=== PATIENT | female | born 1985 | race African-American/Black ===

== ENCOUNTER 2017-01-29 05:28 | Emergency (ER) | payer SELFPAY ==
[~2017-01-29] VITALS: Ht 154.9 cm; Wt 100.1 kg
[2017-01-29 05:28] VITALS: BP 129/71; PULSE 109; TEMP 97.8; O2SAT 99
[~2017-01-29 05:28] MED LIST: BENT20TA PO; MOBI7.5T PO; ZANTTAB PO; ZOFR4TAB3 SL
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
[2017-01-29] MEDS ORDERED: IBUP800T23 PO (06:30)
[2017-01-29] MEDS ORDERED: KETOROLAC TROMETHAMINE 60 MG/2 ML (IM) VIAL IM ONE (06:45)
--- NOTE | 2017-01-29 06:57 | RADHPO ---
EXAM DATE/TIME: 01/29/2017 06:15 [facility] COMPARISON: No previous studies available for comparison. INDICATIONS : Right ankle pain from fall. MEDICAL HISTORY : None. SURGICAL HISTORY : None. ENCOUNTER: Initial ACUITY: 1 day PAIN SCORE: 8/10 LOCATION: lateral side of ankle. FINDINGS: There is mild soft tissue thickening both medial and lateral. No radiopaque foreign bodies. The oss eous structures are grossly intact without evidence of fracture. The ankle mortise is normal in conf iguration. CONCLUSION: Medial lateral soft tissue swelling. No fracture seen. Wili Stroud MD on January 29, 2017 at 6:55 Board Certified Radiologist. This report was verified electronically.
[2017-01-29 07:05] VITALS: BP 117/75; PULSE 84; RESP 16; O2SAT 99
[2017-01-29 08:38] VITALS: BP 121/70
== END 2017-01-29 08:54 | disposition home or self-care (01) ==
LOC: PHED 05:28
DX: S93.401A Sprain of unspecified ligament of right ankle, initial encounter (principal); F10.129 Alcohol abuse with intoxication, unspecified; W18.30XA Fall on same level, unspecified, initial encounter; Y93.9 Activity, unspecified; Y92.9 Unspecified place or not applicable
CPT/HCPCS: 73610; 96372; 99283; E0113; J1885

== ENCOUNTER 2017-03-14 06:51 | Emergency (ER) | payer SELFPAY ==
[~2017-03-14] VITALS: Ht 175.3 cm; Wt 87.0 kg
[~2017-03-14 06:51] MED LIST changes: -BENT20TA PO; +IBUP800T23 PO; -MOBI7.5T PO; -ZANTTAB PO; -ZOFR4TAB3 SL
[2017-03-14] MEDS ORDERED: LORazepam 2 MG/ML VIAL IV PUSH ONE (07:30)
[2017-03-14] MEDS ORDERED: ONDANSETRON HCL 4 MG/2 ML VIAL IV ONE ×2 (07:30)
[2017-03-14] MEDS ORDERED: KETOROLAC TROMETHAMINE 30 MG/ML (IVP) VIAL IVP ONE (07:30)
[2017-03-14] MEDS ORDERED: SODIUM CHLOR 0.9% 1000 ML INJ 1,000 ML IV ONE (07:30)
[2017-03-14 07:36] LABS: AUTOMATED NEUTROPHIL # 6.3 TH/MM3 (1.8-7.7); BASOPHIL # 0.1 TH/MM3 (0-0.2); BASOPHIL % 0.6 % (0.0-2.0); EOSINOPHIL # 0.1 TH/MM3 (0-0.4); EOSINOPHIL % 1.4 % (0.0-4.0); HEMATOCRIT 37.7 % (35.0-46.0); HEMO FLAGS DIFF FINAL; LYMPH % 28.4 % (9.0-44.0); LYMPHOCYTE # 2.8 TH/MM3 (1.0-4.8); MEAN CELL VOLUME 81.3 FL (80.0-100.0); MEAN CORPUSCULAR HEMOGLOBIN 27.5 PG (27.0-34.0); MEAN CORPUSCULAR HGB CONC 33.8 % (32.0-36.0); MONO % 6.2 % (0.0-8.0); NEUT % 63.4 % (16.0-70.0); PLATELET COUNT 294 TH/MM3 (150-450); RED BLOOD COUNT 4.64 MIL/MM3 (4.00-5.30); RED CELL DISTRIBUTION WIDTH 15.7 % (11.6-17.2)
[2017-03-14 07:38] LABS: BLOOD, URINE TRACE (NEG); COMMENT (UR) CULT NOT INDICATED; CULTURE IF INDICATED CULT NOT INDICATED; GLUCOSE,URINE NEG (NEG); KETONE, URINE NEG (NEG); MUCUS URINE FEW /lpf (OCC); NITRITE,URINE NEG (NEG); PH, URINE 6.5 (5.0-8.5); SQUAMOUS EPITHELIAL CELL URINE 1 /hpf (0-5); URINE COLOR YELLOW (YELLW/STRAW)
[2017-03-14] MEDS ORDERED: ACETAMINOPHEN 1000 MG/100 ML VIAL IV ONE (07:45)
[2017-03-14 07:54] LABS: ALT (GPT) 21 U/L (10-53); ANION GAP 8 MEQ/L (5-15); AST (GOT) 19 U/L (15-37); BICARBONATE 24.1 MEQ/L (21.0-32.0); BLOOD UREA NITROGEN 8 MG/DL (7-18); CHLORIDE 107 MEQ/L (98-107); GLOMERULAR FILTRATION RATE 86 ML/MIN (>89); POTASSIUM 3.7 MEQ/L (3.5-5.1); SODIUM (NA) 139 MEQ/L (136-145)
[2017-03-14 07:56] LABS: ALKALINE PHOSPHATASE 61 U/L (45-117); TOTAL BILIRUBIN ADULT 0.2 MG/DL (0.2-1.0)
[2017-03-14] MEDS ORDERED: NAPR500 PO (08:03)
[2017-03-14] MEDS ORDERED: ZOFR4TAB3 SL (08:03)
[2017-03-14] MEDS ORDERED: TRAM50TA PO (08:03)
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
[2017-03-14 12:18] LABS: CHLAMYDIA PCR NOT DETECTED (NOT DETECT); NEISSERIA PCR NOT DETECTED (NOT DETECT)
== END 2017-03-14 08:30 | disposition home or self-care (01) ==
LOC: NEPE 06:51
DX: R10.9 Unspecified abdominal pain (principal); I10 Essential (primary) hypertension; M54.9 Dorsalgia, unspecified; G89.29 Other chronic pain; F17.210 Nicotine dependence, cigarettes, uncomplicated
CPT/HCPCS: 80053; 81001; 83690; 84703; 85025; 87491; 87591; 96374; 96375; 99283; J0131; J1885; J2060; J2405; J7030

== ENCOUNTER 2017-03-21 02:10 | Emergency (ER) | payer SELFPAY ==
[~2017-03-21] VITALS: Ht 180.3 cm; Wt 78.0 kg
[~2017-03-21 02:10] MED LIST changes: -IBUP800T23 PO; +NAPR500 PO; +TRAM50TA PO; +ZOFR4TAB3 SL
[2017-03-21 02:13] VITALS: BP 135/79; PULSE 86; RESP 16; TEMP 98.8; O2SAT 98
[2017-03-21] MEDS ORDERED: TRIA.1%T TOPICAL (02:43)
[2017-03-21] MEDS ORDERED: VIST50CA PO (02:43)
[2017-03-21] MEDS ORDERED: diphenhydrAMINE HCL 50 MG/ML VIAL IM ONE (02:45)
[2017-03-21] MEDS ORDERED: DEXAMETHASONE SOD PHOS 20 MG/5 ML VIAL IM ONE (02:45)
--- NOTE | 2017-03-21 02:46 | PD ---
HPI Chief Complaint: Bite or Sting Time Seen by Provider: 02:43 Travel History International Travel<30 days: No Contact w/Intl Traveler<30days: No Traveled to known affect area: No History of Present Illness HPI 31-year-old black female presents to emergency department for evaluation of a insect bite. She states that she is been having pain, swelling and redness to her left forearm for the last 3 days after been bitten by something. She does not recall what may have been. She states that it becomes painful when she puts pressure on it. States that she has cramping in her hand from it. Symptoms are moderate. She denies any shortness of breath or wheezing. No glossal edema. No other rashes. PFSH Past Medical History Anxiety: Yes Diminished Hearing: No Hypertension: Yes Musculoskeletal: Yes ( CHRONIC BACK PAIN) Reproductive: No Immunizations Current: Yes Tetanus Vaccination: < 5 Years Influenza Vaccination: No PNEUMOCCOCAL Vaccine (Year): 3 ?: Not Menopausal: No : 1 Miscarriage: 1 Ovarian Cysts: Yes Past Surgical History Appendectomy: Yes Gynecologic Surgery: Yes (FIBROID TUMOR) Other Surgery: Yes Social History Alcohol Use: Yes (OCC) Tobacco Use: Yes (2-3 ppd ) Substance Use: Yes (marijuana) Allergies-Medications (Allergen,Severity, Reaction): Coded Allergies: Codeine (Verified Allergy, Severe, ANAPHALAXIS, 03/21/17) Doxycycline (Verified Allergy, Severe, Anaphylaxis, 03/21/17) Reported Meds & Prescriptions Reported Meds & Active Scripts Active No Active Prescriptions or Reported Medications Review of Systems Except as stated in HPI: all other systems reviewed are Neg Physical Exam Narrative GENERAL: This is a well-nourished, well-developed patient, in no apparent distress. SKIN: The patient has a 4 x 4 centimeter area of erythema and induration. No fluctuance or pointing., ecchymoses or lesions. Warm and dry. HEAD: Atraumatic. Normocephalic. EYES: PERRL, EOMI, no discharge or injection. No scleral icterus. EARS: Clear NOSE: Nasal turbinates appear normal. THROAT: Mucosa pink and moist. Airway patent. NECK: Trachea midline. supple, moves head freely. LUNGS: Clear to auscultation. CV: Regular in rhythm. ABDOMEN: Soft nontender. EXT: No clubbing cyanosis or edema. Data Data Last Documented VS Vital Signs Date Time Temp Pulse Resp B/P Pulse Ox O2 Delivery O2 Flow Rate FiO2 03/21/17 02:13 98.8 86 16 135/79 98 Room Air Orders Diphenhydramine Inj (Benadryl Inj) (03/21/17 02:45) Dexamethasone Inj (Decadron Inj) (03/21/17 02:45) MDM Medical Decision Making Medical Screen Exam Complete: Yes Emergency Medical Condition: Yes Medical Record Reviewed: Yes Differential Diagnosis MDM: High Differential diagnoses: Abscess, folliculitis, cellulitis, lymphangitis, abrasion, contact dermatitis, insect bite with local reaction Narrative Course Patient is given Decadron 10 mg IM and Benadryl 50 g IM. This is insect bite local reaction left forearm Diagnosis Primary Impression: Insect bite of left forearm with local reaction Qualified Code: S50.862A - Insect bite of left forearm with local reaction, initial encounter Patient Instructions: General Instructions Additional Instructions: Rest. Elevation. keep clean and dry. Triamcinolone and Vistaril. Follow-up with a medical doctor in the next 2-3 days for recheck. Return to the ER for any problems. Med/Other Pt SpecificInfo: Prescription(s) given Scripts Triamcinolone Topical 0.1% Cream1 Applic TOPICAL BID #30 GM Prov:Sheryl Diaz MD 03/21/17 Hydroxyzine Pamoate (Vistaril)50 Mg Cap50 Mg PO QID PRN (ITCHING) #20 CAP Ref 0 Prov:Sheryl Diaz MD 03/21/17 Disposition: 01 DISCHARGE HOME Condition: Stable Ric Jerez March 21, 2017 02:46
== END 2017-03-21 03:07 | disposition home or self-care (01) ==
LOC: NEPK 02:10
DX: S50.862A Insect bite (nonvenomous) of left forearm, initial encounter (principal); R22.32 Localized swelling, mass and lump, left upper limb; L53.9 Erythematous condition, unspecified; R25.2 Cramp and spasm; I10 Essential (primary) hypertension; F17.200 Nicotine dependence, unspecified, uncomplicated; Z86.59 Personal history of other mental and behavioral disorders; Z87.39 Personal history of other diseases of the musculoskeletal system and connective tissue; W57.XXXA Bitten or stung by nonvenomous insect and other nonvenomous arthropods, initial encounter
CPT/HCPCS: 96372; 99282; J1100; J1200

== ENCOUNTER 2017-04-28 13:40 | Emergency (ER) | payer SELFPAY ==
[~2017-04-28] VITALS: Ht 175.3 cm; Wt 100.0 kg
[~2017-04-28 13:40] MED LIST changes: -NAPR500 PO; -TRAM50TA PO; +TRIA.1%T TOPICAL; +VIST50CA PO; -ZOFR4TAB3 SL
[2017-04-28 13:42] VITALS: BP 109/76; PULSE 88; RESP 20; TEMP 97.7; O2SAT 95
--- NOTE | 2017-04-28 13:55 | PD ---
Physical Exam Date Seen by Provider: Apr 28, 2017 Time Seen by Provider: 13:49 Data Data Last Documented VS Vital Signs Date Time Temp Pulse Resp B/P Pulse Ox O2 Delivery O2 Flow Rate FiO2 04/28/17 13:42 97.7 88 20 109/76 95 Room Air [facility] Supervised Visit with VINOD: No Narrative Course 31 YO F with complaint of right breast pain, possible abscess x 2 weeks and 10/ 10 abdominal pain since last night. + N/V. +chills. Vitals reviewed. Awaiting bed placement. Tania Fatima Apr 28, 2017 13:55
[2017-04-28] MEDS ORDERED: BACT800T5 PO (15:39)
[2017-04-28] MEDS ORDERED: TRAM50TA PO (15:39)
--- NOTE | 2017-04-28 15:51 | PD ---
HPI Chief Complaint: Abdominal Pain Time Seen by Provider: 15:18 Travel History International Travel<30 days: No Contact w/Intl Traveler<30days: No Traveled to known affect area: No History of Present Illness HPI The patient was seen and examined in the presence of the nurse. This patient complains of an infected lesion near Her groin. Been draining. She has no fever. Patient has chronic pelvic pains and complains of some of that as well. No vaginal discharge. She is on her menstrual period which is when her endometriosis flares. Severity is mild to moderate PFSH Past Medical History Anxiety: Yes Diminished Hearing: No Hypertension: Yes Musculoskeletal: Yes ( CHRONIC BACK PAIN) Reproductive: No Immunizations Current: Yes PNEUMOCCOCAL Vaccine (Year): 3 ?: Not LMP: 04/27/17 Menopausal: No : 1 Miscarriage: 1 Ovarian Cysts: Yes Past Surgical History Appendectomy: Yes Gynecologic Surgery: Yes (FIBROID TUMOR) Other Surgery: Yes Social History Alcohol Use: Yes (OCC) Tobacco Use: Yes (2-3 ppd ) Substance Use: No ( ) Allergies-Medications (Allergen,Severity, Reaction): Coded Allergies: Codeine (Verified Allergy, Severe, ANAPHALAXIS, 03/21/17) Doxycycline (Verified Allergy, Severe, Anaphylaxis, 03/21/17) Reported Meds & Prescriptions Reported Meds & Active Scripts Active Bactrim DS (Sulfamethoxazole-Trimethoprim) 800-160 Mg Tab 1 Tab PO BID Tramadol (Tramadol HCl) 50 Mg Tab 50 Mg PO Q6H PRN Review of Systems General / Constitutional: No: Fever HENT: No: Headaches Cardiovascular: No: Chest Pain or Discomfort Respiratory: No: Cough Physical Exam Narrative GASTROINTESTINAL: Abdomen soft, non-tender, nondistended. Positive bowel sounds. No hepato-splenomegaly, or palpable masses. No guarding. NECK: Symmetrical appearance, midline trachea. No mass or crepitus. Thyroid without enlargement, tenderness, or mass. Psych: Normal mood and affect. Normal insight and judgment. Groin: Patient has a very small draining lesion in the left side of the mons. No fluctuance or erythema or warmth. Data Data Last Documented VS Vital Signs Date Time Temp Pulse Resp B/P Pulse Ox O2 Delivery O2 Flow Rate FiO2 04/28/17 13:42 97.7 88 20 109/76 95 Room Air Orders Ed Urine Pregnancytest Poc (04/28/17 15:42) MDM Medical Decision Making Medical Screen Exam Complete: Yes Emergency Medical Condition: Yes Medical Record Reviewed: Yes Differential Diagnosis Abscess, cellulitis, boil Narrative Course Patient's infected lesion in the left side of the mons is very minor. I wrote her a week of Bactrim DS She has a soft benign nontender abdomen and chronic pelvic pain during her menstrual. Which she is currently on Urine ordered just to make sure she is not Assuming she has not she'll be stable for outpatient follow-up with prescription for tramadol and Bactrim Diagnosis Primary Impression: Infected lesion of skin Additional Impression: Chronic pelvic pain in female Additional Instructions: The patient was advised to follow up with their physician and return if they worsen. The patient was warned about potential sedation for the medications they will receive on prescription. Med/Other Pt SpecificInfo: Prescription(s) given Scripts Sulfamethoxazole-Trimethoprim (Bactrim DS)800-160 Mg Tab1 Tab PO BID #14 TAB Ref 0 Prov:Reg Toledo MD 04/28/17 Tramadol 50 Mg Tab50 Mg PO Q6H PRN (PAIN) #15 TAB Ref 0 Prov:Reg Toledo MD 04/28/17 Disposition: 01 DISCHARGE HOME Condition: Stable Reg Toledo MD Apr 28, 2017 15:50
== END 2017-04-28 16:38 | disposition home or self-care (01) ==
LOC: NEPD 13:40
DX: B99.8 Other infectious disease (principal); G89.29 Other chronic pain; R10.2 Pelvic and perineal pain; I10 Essential (primary) hypertension
CPT/HCPCS: 84703; 99284

== ENCOUNTER 2017-05-28 03:23 | Emergency (ER) | payer SELFPAY ==
[~2017-05-28 03:23] MED LIST changes: +BACT800T5 PO; +TRAM50TA PO; -TRIA.1%T TOPICAL; -VIST50CA PO
[2017-05-28 03:26] VITALS: BP 119/72; PULSE 80; RESP 16; TEMP 98.5; O2SAT 99
--- NOTE | 2017-05-28 04:17 | PD ---
HPI Chief Complaint: Headache Time Seen by Provider: 04:14 Travel History International Travel<30 days: No Contact w/Intl Traveler<30days: No Traveled to known affect area: No History of Present Illness HPI C/O HEADACHE, FRONT OF FOREHEAD, 7/10, NOT WORSE BONILLA EVER, NO PHOTOPHOBIA, NO FEVER, DENIES N/V/D/CP.. PFSH Past Medical History Anxiety: Yes Diminished Hearing: No Hypertension: Yes Musculoskeletal: Yes ( CHRONIC BACK PAIN) Reproductive: No Immunizations Current: Yes PNEUMOCCOCAL Vaccine (Year): 3 Menopausal: No : 1 Miscarriage: 1 Ovarian Cysts: Yes Past Surgical History Appendectomy: Yes Gynecologic Surgery: Yes (FIBROID TUMOR) Other Surgery: Yes Social History Alcohol Use: Yes (OCC) Tobacco Use: Yes (2-3 ppd ) Substance Use: No ( ) Allergies-Medications (Allergen,Severity, Reaction): Coded Allergies: Codeine (Verified Allergy, Severe, ANAPHALAXIS, 03/21/17) Doxycycline (Verified Allergy, Severe, Anaphylaxis, 03/21/17) Reported Meds & Prescriptions Reported Meds & Active Scripts Active Zofran Odt (Ondansetron Odt) 4 Mg Tab 4 Mg SL Q6HR PRN Fioricet (Vbuwgurcoe-Sdwtputxjmxcq-Onqzzbcq) 50-300-40 Mg Cap 1 Cap PO Q4H PRN Review of Systems Except as stated in HPI: all other systems reviewed are Neg HENT: Positive: Headaches Neurologic: Positive: Headache Physical Exam Narrative GENERAL: SKIN: Warm and dry. HEAD: Atraumatic. Normocephalic. EYES: Pupils equal and round. No scleral icterus. No injection or drainage. ENT: No nasal bleeding or discharge. Mucous membranes pink and moist. NECK: Trachea midline. No JVD. CARDIOVASCULAR: Regular rate and rhythm. RESPIRATORY: No accessory muscle use. Clear to auscultation. Breath sounds equal bilaterally. GASTROINTESTINAL: Abdomen soft, non-tender, nondistended. Hepatic and splenic margins not palpable. MUSCULOSKELETAL: Extremities without clubbing, cyanosis, or edema. No obvious deformities. NEUROLOGICAL: Awake and alert. No obvious cranial nerve deficits. Motor grossly within normal limits. Five out of 5 muscle strength in the arms and legs. Normal speech. PSYCHIATRIC: Appropriate mood and affect; insight and judgment normal. Data Data Last Documented VS Vital Signs Date Time Temp Pulse Resp B/P Pulse Ox O2 Delivery O2 Flow Rate FiO2 05/28/17 03:26 98.5 80 16 119/[address] Brain W/O Iv Contrast(Rout) (05/28/17 04:17) Ed Urine Pregnancytest Poc (05/28/17 04:17) Ondansetron Odt (Zofran Odt) (05/28/17 04:30) Ketorolac Inj (Toradol Inj) (05/28/17 04:30) MDM Medical Decision Making Medical Screen Exam Complete: Yes Emergency Medical Condition: Yes Medical Record Reviewed: Yes Differential Diagnosis ICH V SINUS V TENSION BONILLA Narrative Course PATIENT SEEN AND EVALUATED, CT NEG FOR ICH, PT PAIN IS GREATLY IMPROVED, AND IS NOW FEELING WELL Diagnosis Primary Impression: HEADACHE Scripts Ondansetron Odt (Zofran Odt)4 Mg Tab4 Mg SL Q6HR PRN (Nausea/Vomiting) #12 TAB Prov:Denis Flynn MD 05/28/17 Furvkehquh-Rqtukenrhpxay-Eqypugys (Fioricet)50-300-40 Mg Cap1 Cap PO Q4H PRN ( HEADACHE) #20 CAP Prov:Denis Flynn MD 05/28/17 Disposition: 01 DISCHARGE HOME Condition: Stable Denis Flynn MD May 28, 2017 04:17
[2017-05-28] MEDS ORDERED: ONDANSETRON ODT 4 MG TAB PO ONE (04:30)
[2017-05-28] MEDS ORDERED: KETOROLAC TROMETHAMINE 60 MG/2 ML (IM) VIAL IM ONE (04:30)
--- NOTE | 2017-05-28 05:20 | RADRPT ---
EXAM DATE/TIME: 05/28/2017 05:10 [facility] COMPARISON: CT BRAIN W/O CONTRAST, July 03, 2016, 2:54. INDICATIONS : Headache. RADIATION DOSE: 36.82 CTDIvol (mGy) MEDICAL HISTORY : Hypertension. SURGICAL HISTORY : Appendectomy. ENCOUNTER: Initial ACUITY: 1 day PAIN SCALE: 7/10 LOCATION: cranial TECHNIQUE: Multiple contiguous axial images were obtained of the head. Using automated exposure control and adj ustment of the mA and/or kV according to patient size, radiation dose was kept as low as reasonably a chievable to obtain optimal diagnostic quality images. DICOM format image data is available electro nically for review and comparison. FINDINGS: CEREBRUM: The ventricles are normal for age. No evidence of midline shift, mass lesion, hemorrhage or acute in farction. No extra-axial fluid collections are seen. POSTERIOR FOSSA: The cerebellum and brainstem are intact. The 4th ventricle is midline. The cerebellopontine angle i s unremarkable. EXTRACRANIAL: The visualized portion of the orbits is intact. SKULL: The calvaria is intact. No evidence of skull fracture. CONCLUSION: No acute intracranial disease. Denilson Holden MD on May 28, 2017 at 5:18 Board Certified Radiologist. This report was verified electronically.
[2017-05-28] MEDS ORDERED: BUTA1CAP PO (06:02)
[2017-05-28] MEDS ORDERED: ZOFR4TAB3 SL (06:02)
== END 2017-05-28 07:03 | disposition home or self-care (01) ==
LOC: NEPC 03:23
DX: R51 Headache (principal); F41.9 Anxiety disorder, unspecified; I10 Essential (primary) hypertension; F17.200 Nicotine dependence, unspecified, uncomplicated; Z79.899 Other long term (current) drug therapy
CPT/HCPCS: 70450; 84703; 96372; 99285; J1885

== ENCOUNTER 2017-08-09 02:12 | Emergency (ER) | payer SELFPAY ==
[~2017-08-09] VITALS: Ht 175.3 cm; Wt 72.5 kg
[~2017-08-09 02:12] MED LIST changes: -BACT800T5 PO; +BUTA1CAP PO; -TRAM50TA PO; +ZOFR4TAB3 SL
[2017-08-09 02:15] VITALS: BP 119/75; PULSE 92; RESP 16; TEMP 98.8; O2SAT 97
[2017-08-09] MEDS ORDERED: HYDR1SOL6 (02:35)
[2017-08-09] MEDS ORDERED: XANA2TAB2 PO (02:35)
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
--- NOTE | 2017-08-09 03:35 | RADRPT ---
EXAM DATE/TIME: 08/09/2017 02:49 [facility] COMPARISON: CT BRAIN W/O CONTRAST, May 28, 2017, 5:10. INDICATIONS : Cephalgia. Patient fell one week ago and hit head. RADIATION DOSE: 56.35 CTDIvol (mGy) MEDICAL HISTORY : Hypertension. SURGICAL HISTORY : None. ENCOUNTER: Initial ACUITY: 1 week PAIN SCALE: 8/10 LOCATION: cranial TECHNIQUE: Multiple contiguous axial images were obtained of the head. Using automated exposure control and adj ustment of the mA and/or kV according to patient size, radiation dose was kept as low as reasonably a chievable to obtain optimal diagnostic quality images. DICOM format image data is available electro nically for review and comparison. FINDINGS: CEREBRUM: The ventricles are normal for age. No evidence of midline shift, mass lesion, hemorrhage or acute in farction. No extra-axial fluid collections are seen. POSTERIOR FOSSA: The cerebellum and brainstem are intact. The 4th ventricle is midline. The cerebellopontine angle i s unremarkable. EXTRACRANIAL: The visualized portion of the orbits is intact. SKULL: The calvaria is intact. No evidence of skull fracture. CONCLUSION: Normal examination. Wili Barahona Jr., MD on August 09, 2017 at 3:32 Board Certified Radiologist. This report was verified electronically.
--- NOTE | 2017-08-09 03:36 | RADRPT ---
EXAM DATE/TIME: 08/09/2017 02:50 [facility] COMPARISON: CT CERVICAL SPINE W/O CONTRAST, July 03, 2016, 2:54. INDICATIONS : Cephalgia. Patient fell one week ago and hit head. RADIATION DOSE: 39.7 CTDIvol (mGy) MEDICAL HISTORY : None SURGICAL HISTORY : None. ENCOUNTER: Initial ACUITY: 1 week PAIN SCALE: 0/10 LOCATION: neck TECHNIQUE: Volumetric scanning of the cervical spine was performed. Multiplanar reconstructions in the sagittal, coronal and oblique axial planes were performed. Using automated exposure control and adjustment o f the mA and/or kV according to patient size, radiation dose was kept as low as reasonably achievable to obtain optimal diagnostic quality images. DICOM format image data is available electronically f or review and comparison. FINDINGS: VERTEBRAE: Normal vertebral body height. ALIGNMENT: No evidence of subluxation. C2-C3: The bony spinal canal is normal in size. No evidence of disc bulge or herniation. The neural forami na are bilaterally patent. C3-C4: The bony spinal canal is normal in size. No evidence of disc bulge or herniation. The neural forami na are bilaterally patent. C4-C5: The bony spinal canal is normal in size. No evidence of disc bulge or herniation. The neural forami na are bilaterally patent. C5-C6: The bony spinal canal is normal in size. No evidence of disc bulge or herniation. The neural forami na are bilaterally patent. C6-C7: The bony spinal canal is normal in size. No evidence of disc bulge or herniation. The neural forami na are bilaterally patent. C7-T1: The bony spinal canal is normal in size. No evidence of disc bulge or herniation. The neural forami na are bilaterally patent. CONCLUSION: Normal examination. Wili Barahona Jr., MD on August 09, 2017 at 3:33 Board Certified Radiologist. This report was verified electronically.
--- NOTE | 2017-08-09 03:45 | RADRPT ---
EXAM DATE/TIME: 08/09/2017 03:12 [facility] COMPARISON: No previous studies available for comparison. INDICATIONS : Left foot pain. MEDICAL HISTORY : None. SURGICAL HISTORY : None. ENCOUNTER: Initial ACUITY: 2 days PAIN SCORE: 5/10 LOCATION: Left foot. FINDINGS: Three view examination of the left foot demonstrates no soft tissue swelling, dislocation, or fractur e. The tarsal bones appear intact. The interphalangeal and metatarsophalangeal joints are intact. The calcaneus is intact. Bony mineralization is normal. CONCLUSION: Unremarkable examination of the left foot. Wili Barahona Jr., MD on August 09, 2017 at 3:43 Board Certified Radiologist. This report was verified electronically.
--- NOTE | 2017-08-09 03:45 | RADRPT ---
EXAM DATE/TIME: 08/09/2017 03:05 [facility] COMPARISON: SPINE LUMBAR LTD (AP & LAT), August 01, 2014, 19:53. INDICATIONS : Trauma, fall. MEDICAL HISTORY : None. SURGICAL HISTORY : None. ENCOUNTER: Initial ACUITY: 2 days PAIN SCORE: 6/10 LOCATION: lumbar spine. FINDINGS: Two view examination was performed. There are five non-rib bearing vertebral bodies. The vertebral bodies are in normal alignment without evidence of subluxation or scoliosis. Disc space narrowing wit h minimal anterior osteophyte production at L5-S1. The pedicles are intact. Bony mineralization is n ormal. No fracture is identified. A large calcified degenerating fibroid. CONCLUSION: No acute abnormality. L5-S1 degenerative disc disease. Degenerating uterine fibroid. Wili Barahona Jr., MD on August 09, 2017 at 3:40 Board Certified Radiologist. This report was verified electronically.
[2017-08-09] MEDS: ACETAMINOPHEN 325 MG TAB PO ONE ×2 (04:17→04:18)
== END 2017-08-09 05:33 | disposition home or self-care (01) ==
LOC: NEPE 02:12
DX: S09.90XA Unspecified injury of head, initial encounter (principal); M79.672 Pain in left foot; M54.5 Low back pain; F17.210 Nicotine dependence, cigarettes, uncomplicated; F12.90 Cannabis use, unspecified, uncomplicated; W01.10XA Fall on same level from slipping, tripping and stumbling with subsequent striking against unspecified object, initial encounter; Y92.000 Kitchen of unspecified non-institutional (private) residence as the place of occurrence of the external cause
CPT/HCPCS: 70450; 72100; 72125; 73630; 99285

== ENCOUNTER 2018-01-04 13:29 | Observation (INO) | payer SELFPAY ==
[2018-01-04] VITALS (9 sets, daily range): BP systolic 103–171; BP diastolic 62–81; PULSE 39–50; RESP 16–25; TEMP 98; O2SAT 97–99
[~2018-01-04] VITALS: Ht 167.6 cm; Wt 60.0 kg
[~2018-01-04 13:29] MED LIST changes: +HYDR1SOL6; +XANA2TAB2 PO
[2018-01-04] MEDS ORDERED: SODIUM CHLOR 0.9% 1000 ML INJ 1,000 ML IV SCH (13:36)
--- NOTE | 2018-01-04 13:38 | PD ---
HPI Chief Complaint: abd pain Time Seen by Provider: 13:36 Travel History International Travel<30 days: No Contact w/Intl Traveler<30days: No Traveled to known affect area: No History of Present Illness HPI 32-year-old female with history of asthma and anxiety, presents to emergency department for evaluation of acute onset lower abdominal pain since last evening with nausea and vomiting. Patient was in route with [facility] paramedics when she was Halloween and moaning in pain. They gave her a dose of Zofran. Within moments, the patient developed a bradycardic rhythm and what appeared to be a third-degree heart block. She remained asymptomatic through this. She denies any cardiac history. Denies any illicit drug use. She is uncertain if she was . She started having vaginal bleeding last evening. Denies any change in bowel or bladder. She has no other symptoms reported this time. PFSH Past Medical History Anemia: Yes Asthma: Yes Anxiety: Yes Diminished Hearing: No Hypertension: Yes Musculoskeletal: Yes ( CHRONIC BACK PAIN) Reproductive: No Respiratory: Yes (BRONCHITIS) Immunizations Current: Yes PNEUMOCCOCAL Vaccine (Year): 3 Menopausal: No : 1 Miscarriage: 1 Ovarian Cysts: Yes Past Surgical History Abdominal Surgery: Yes Appendectomy: Yes Genitourinary Surgery: No Gynecologic Surgery: Yes (FIBROID TUMOR) Tonsillectomy: Yes Other Surgery: Yes Social History Alcohol Use: Yes (OCC) Tobacco Use: Yes (1 ppd ) Substance Use: Yes (Marijuana ) Allergies-Medications (Allergen,Severity, Reaction): Coded Allergies: codeine (Unverified Allergy, Severe, ANAPHALAXIS, 08/09/17) doxycycline (Unverified Allergy, Severe, Anaphylaxis, 08/09/17) morphine (Verified Adverse Reaction, Mild, Hallucinations, 08/09/17) Reported Meds & Prescriptions Reported Meds & Active Scripts Active Zofran Odt (Ondansetron Odt) 4 Mg Tab 4 Mg SL Q6HR PRN Fioricet (Pnrmsczsis-Buckyxqbklnwb-Scubnsop) 50-300-40 Mg Cap 1 Cap PO Q4H PRN Reported Xanax (Alprazolam) 2 Mg Tab 2 Mg PO Q8H PRN Hydrocodon-Acetamin 7.5-325/15 (Hydrocodone/Acetaminophen) 7.5 Mg-325 Mg/15 Ml ( 15 Ml) Solution 7.5 Q6HR Review of Systems Except as stated in HPI: all other systems reviewed are Neg Physical Exam Narrative GENERAL: Well-nourished female in obvious distress, howling and moaning thrashing herself all over the bed holding her abdomen. SKIN: Focused skin assessment warm/dry. HEAD: Atraumatic. Normocephalic. EYES: Pupils equal and round. No scleral icterus. No injection or drainage. ENT: No nasal bleeding or discharge. Mucous membranes pink and moist. NECK: Trachea midline. No JVD. CARDIOVASCULAR: Bradycardic rate and irregular rhythm No murmur appreciated. RESPIRATORY: No accessory muscle use. Clear to auscultation. Breath sounds equal bilaterally. GASTROINTESTINAL: Abdomen soft nondistended. Exam is limited due to patient holding her knees up and not allowing for full examination of the abdomen. After pain control, patient does have mild suprapubic guarding. Hepatic and splenic margins not palpable. MUSCULOSKELETAL: No obvious deformities. No clubbing. No cyanosis. No edema. NEUROLOGICAL: Awake and alert. No obvious cranial nerve deficits. Motor grossly within normal limits. Normal speech. Data Data Last Documented VS Vital Signs Date Time Temp Pulse Resp B/P (MAP) Pulse Ox O2 Delivery O2 Flow Rate FiO2 01/04/18 16:30 48 16 171/81 (111) 98 Room Air 01/04/18 13:46 98.0 Orders Orders Beta Hcg (Quant/Titer) (01/04/18 13:36) Complete Blood Count With Diff (01/04/18 13:36) Comprehensive Metabolic Panel (01/04/18 13:36) Lipase (01/04/18 13:36) Prothrombin Time / Inr (Pt) (01/04/18 13:36) Act Partial Throm Time (Ptt) (01/04/18 13:36) Urinalysis - C+S If Indicated (01/04/18 13:36) Ct Abd/Pel W Iv Contrast(Rout) (01/04/18 13:36) Iv Access Insert/Monitor (01/04/18 13:36) Ecg Monitoring (01/04/18 13:36) Oximetry (01/04/18 13:36) Sodium Chlor 0.9% 1000 Ml Inj (Ns 1000 M (01/04/18 13:36) Sodium Chloride 0.9% Flush (Ns Flush) (01/04/18 13:45) Electrocardiogram (01/04/18 13:36) Ketorolac Inj (Toradol Inj) (01/04/18 13:45) Ed Urine Pregnancytest Poc (01/04/18 13:36) Lorazepam Inj (Ativan Inj) (01/04/18 13:45) Drug Screen, Random Urine (01/04/18 13:59) Iohexol 350 Inj (Omnipaque 350 Inj) (01/04/18 15:09) Labs Laboratory Tests Test 01/04/18 14:00 White Blood Count 14.0 TH/MM3 Red Blood Count 4.05 MIL/MM3 Hemoglobin 11.4 GM/DL Hematocrit 34.8 % Mean Corpuscular Volume 85.9 FL Mean Corpuscular Hemoglobin 28.2 PG Mean Corpuscular Hemoglobin Concent 32.8 % Red Cell Distribution Width 16.2 % Platelet Count 264 TH/MM3 Mean Platelet Volume 9.0 FL Neutrophils (%) (Auto) 80.1 % Lymphocytes (%) (Auto) 15.6 % Monocytes (%) (Auto) 3.7 % Eosinophils (%) (Auto) 0.3 % Basophils (%) (Auto) 0.3 % Neutrophils # (Auto) 11.2 TH/MM3 Lymphocytes # (Auto) 2.2 TH/MM3 Monocytes # (Auto) 0.5 TH/MM3 Eosinophils # (Auto) 0.0 TH/MM3 Basophils # (Auto) 0.0 TH/MM3 CBC Comment DIFF FINAL Differential Comment Prothrombin Time 10.8 SEC Prothromb Time International Ratio 1.1 RATIO Activated Partial Thromboplast Time 24.0 SEC Urine Color YELLOW Urine Turbidity HAZY Urine pH 7.0 Urine Specific [place] 1.021 Urine Protein TRACE mg/dL Urine Glucose (UA) NEG mg/dL Urine Ketones 10 mg/dL Urine Occult Blood MOD Urine Nitrite NEG Urine Bilirubin NEG Urine Urobilinogen LESS THAN 2.0 MG/DL Urine Leukocyte Esterase NEG Urine RBC 171 /hpf Urine WBC 1 /hpf Urine Squamous Epithelial Cells 1 /hpf Urine Bacteria OCC /hpf Urine Mucus MOD /lpf Microscopic Urinalysis Comment CULT NOT INDICATED Blood Urea Nitrogen 8 MG/DL Creatinine 0.77 MG/DL Random Glucose 100 MG/DL Total Protein 7.5 GM/DL Albumin 3.7 GM/DL Calcium Level 8.4 MG/DL Alkaline Phosphatase 58 U/L Aspartate Amino Transf (AST/SGOT) 22 U/L Alanine Aminotransferase (ALT/SGPT) 16 U/L Total Bilirubin 0.2 MG/DL Sodium Level 139 MEQ/L Potassium Level 3.6 MEQ/L Chloride Level 108 MEQ/L Carbon Dioxide Level 23.1 MEQ/L Anion Gap 8 MEQ/L Estimat Glomerular Filtration Rate 104 ML/MIN Lipase 114 U/L Human Chorionic Gonadotropin, Quant LESS THAN 1 MIU/ML Urine Opiates Screen NEG Urine Barbiturates Screen NEG Urine Amphetamines Screen NEG Urine Benzodiazepines Screen NEG Urine Cocaine Screen NEG Urine Cannabinoids Screen POS MDM Medical Decision Making Medical Screen Exam Complete: Yes Emergency Medical Condition: Yes Medical Record Reviewed: Yes Differential Diagnosis Menstrual cramps versus appendicitis versus colitis versus miscarriage Narrative Course 32-year-old female presents to emergency department for evaluation. Patient appears in distress, uncomfortable, again thrashing herself all over the bed, howling in pain. She is noted to have what appears to be a complete heart block. Her heart rate is in the 30s. She does not seem to be having any shortness of breath or chest pain or lightheaded sensation. I've discussed with my attending physician who is also assess the patient. We were told from [facility] that the patient is bipolar and has been off her antipsychotics for 2 days however history of bipolar is not in our records. Patient is given Ativan and pain control. She does calm down. Abdominal pain workup is initiated. Patient is placed on cardiac cath tech and pacer pads. She adamantly denies illicit drug use. She adamantly denies any cardiac history. Laboratory Tests Test 01/04/18 14:00 White Blood Count 14.0 TH/MM3 Red Blood Count 4.05 MIL/MM3 Hemoglobin 11.4 GM/DL Hematocrit 34.8 % Mean Corpuscular Volume 85.9 FL Mean Corpuscular Hemoglobin 28.2 PG Mean Corpuscular Hemoglobin Concent 32.8 % Red Cell Distribution Width 16.2 % Platelet Count 264 TH/MM3 Mean Platelet Volume 9.0 FL Neutrophils (%) (Auto) 80.1 % Lymphocytes (%) (Auto) 15.6 % Monocytes (%) (Auto) 3.7 % Eosinophils (%) (Auto) 0.3 % Basophils (%) (Auto) 0.3 % Neutrophils # (Auto) 11.2 TH/MM3 Lymphocytes # (Auto) 2.2 TH/MM3 Monocytes # (Auto) 0.5 TH/MM3 Eosinophils # (Auto) 0.0 TH/MM3 Basophils # (Auto) 0.0 TH/MM3 CBC Comment DIFF FINAL Differential Comment Prothrombin Time 10.8 SEC Prothromb Time International Ratio 1.1 RATIO Activated Partial Thromboplast Time 24.0 SEC Urine Color YELLOW Urine Turbidity HAZY Urine pH 7.0 Urine Specific [place] 1.021 Urine Protein TRACE mg/dL Urine Glucose (UA) NEG mg/dL Urine Ketones 10 mg/dL Urine Occult Blood MOD Urine Nitrite NEG Urine Bilirubin NEG Urine Urobilinogen LESS THAN 2.0 MG/DL Urine Leukocyte Esterase NEG Urine RBC 171 /hpf Urine WBC 1 /hpf Urine Squamous Epithelial Cells 1 /hpf Urine Bacteria OCC /hpf Urine Mucus MOD /lpf Microscopic Urinalysis Comment CULT NOT INDICATED Blood Urea Nitrogen 8 MG/DL Creatinine 0.77 MG/DL Random Glucose 100 MG/DL Total Protein 7.5 GM/DL Albumin 3.7 GM/DL Calcium Level 8.4 MG/DL Alkaline Phosphatase 58 U/L Aspartate Amino Transf (AST/SGOT) 22 U/L Alanine Aminotransferase (ALT/SGPT) 16 U/L Total Bilirubin 0.2 MG/DL Sodium Level 139 MEQ/L Potassium Level 3.6 MEQ/L Chloride Level 108 MEQ/L Carbon Dioxide Level 23.1 MEQ/L Anion Gap 8 MEQ/L Estimat Glomerular Filtration Rate 104 ML/MIN Lipase 114 U/L Human Chorionic Gonadotropin, Quant LESS THAN 1 MIU/ML Urine Opiates Screen NEG Urine Barbiturates Screen NEG Urine Amphetamines Screen NEG Urine Benzodiazepines Screen NEG Urine Cocaine Screen NEG Urine Cannabinoids Screen POS Last Impressions Abdomen/Pelvis CT 01/04/18 1336 Signed Impressions: Service Date/Time: December 15:07 - CONCLUSION: 1. Calcified uterine fibroid again noted. 2. Small amount of free fluid in the pelvis. 3. No evidence of acute intestinal abnormality. 4. Otherwise stable exam without any additional significant findings. Praful Sprague MD Abdominal workup is essentially negative however the patient has had heart rate ranging from 42-50 bpm. This does appear to be a sinus rhythm at this point. Based on this new arrhythmia, we feel it is in her best interest to be admitted for further evaluation. Plan is discussed with patient. She is in agreement with this plan of care. Diagnosis Primary Impression: Cardiac arrhythmia Qualified Codes: I49.9 - Cardiac arrhythmia, unspecified Additional Impression: Abdominal pain Qualified Codes: R10.30 - Lower abdominal pain, unspecified Admitting Information Admitting Physician Requests: Observation Condition: Stable Linnea Gómez Jan 04, 2018 13:38
[2018-01-04] MEDS ORDERED: SODIUM CHLORIDE 0.9% FLUSH 10 ML FLUSH IV FLUSH PRN (13:45)
[2018-01-04] MEDS ORDERED: KETOROLAC TROMETHAMINE 30 MG/ML (IVP) VIAL IVP ONE (13:45)
[2018-01-04] MEDS ORDERED: LORazepam 2 MG/ML VIAL IV PUSH ONE (13:45)
[2018-01-04 14:23] LABS: AUTOMATED NEUTROPHIL # 11.2 TH/MM3 (1.8-7.7); BASOPHIL % 0.3 % (0.0-2.0); EOSINOPHIL % 0.3 % (0.0-4.0); HEMATOCRIT 34.8 % (35.0-46.0); HEMOGLOBIN 11.4 GM/DL (11.6-15.3); LYMPH % 15.6 % (9.0-44.0); LYMPHOCYTE # 2.2 TH/MM3 (1.0-4.8); MEAN CELL VOLUME 85.9 FL (80.0-100.0); MEAN CORPUSCULAR HEMOGLOBIN 28.2 PG (27.0-34.0); MEAN CORPUSCULAR HGB CONC 32.8 % (32.0-36.0); MONO % 3.7 % (0.0-8.0); MONOCYTE # 0.5 TH/MM3 (0-0.9); NEUT % 80.1 % (16.0-70.0); PLATELET COUNT 264 TH/MM3 (150-450); RED BLOOD COUNT 4.05 MIL/MM3 (4.00-5.30); RED CELL DISTRIBUTION WIDTH 16.2 % (11.6-17.2)
[2018-01-04 14:31] LABS: INTERNATIONAL NORMALIZED RATIO 1.1 RATIO; PROTHROMBIN TIME - PATIENT 10.8 SEC (9.8-11.6)
[2018-01-04 14:39] LABS: BACTERIA, URINE OCC /hpf; BILIRUBIN, URINE NEG (NEG); BLOOD, URINE MOD (NEG); GLUCOSE,URINE NEG (NEG); KETONE, URINE 10 mg/dL (NEG); MUCUS URINE MOD /lpf (OCC); NITRITE,URINE NEG (NEG); SQUAMOUS EPITHELIAL CELL URINE 1 /hpf (0-5); URINE COLOR YELLOW (YELLW/STRAW); URINE LEUKOCYTE ESTERASE NEG (NEG)
[2018-01-04 14:42] LABS: ALBUMIN 3.7 GM/DL (3.4-5.0); ALT (GPT) 16 U/L (10-53); AST (GOT) 22 U/L (15-37); BICARBONATE 23.1 MEQ/L (21.0-32.0); BLOOD UREA NITROGEN 8 MG/DL (7-18); CALCIUM 8.4 MG/DL (8.5-10.1); CHLORIDE 108 MEQ/L (98-107); CREATININE 0.77 MG/DL (0.50-1.00); GLOMERULAR FILTRATION RATE 104 ML/MIN (>89); GLUCOSE,RANDOM 100 MG/DL (74-106); SODIUM (NA) 139 MEQ/L (136-145)
[2018-01-04 14:46] LABS: ALKALINE PHOSPHATASE 58 U/L (45-117); TOTAL BILIRUBIN ADULT 0.2 MG/DL (0.2-1.0); TOTAL PROTEIN 7.5 GM/DL (6.4-8.2)
[2018-01-04] MEDS ORDERED: IOHEXOL 350 MG/ML 10 ML VIAL (for RAD DIAG) IVCONTRAST ONE (15:09)
--- NOTE | 2018-01-04 16:33 | RADRPT ---
EXAM DATE/TIME: 01/04/2018 15:07 [facility] COMPARISON: CT ABDOMEN & PELVIS W CONTRAST, July 22, 2016, 21:38. INDICATIONS : Abdominal pain, nausea and vomiting. IV CONTRAST: 96 cc Omnipaque 350 (iohexol) IV ORAL CONTRAST: No oral contrast ingested. RADIATION DOSE: 7.31 CTDIvol (mGy) MEDICAL HISTORY : Hypertension. Ovarian cysts, fibroid tumor. SURGICAL HISTORY : Appendectomy. ENCOUNTER: Initial ACUITY: 1 day PAIN SCALE: 10/10 LOCATION: Bilateral abdomen. TECHNIQUE: Volumetric scanning of the abdomen and pelvis was performed. Using automated exposure control and ad justment of the mA and/or kV according to patient size, radiation dose was kept as low as reasonably achievable to obtain optimal diagnostic quality images. DICOM format image data is available electro nically for review and comparison. FINDINGS: LOWER LUNGS: The visualized lower lungs are clear. LIVER: Homogeneous density without lesion. There is no dilation of the biliary tree. No calcified gallston es. SPLEEN: Normal size without lesion. PANCREAS: Within normal limits. KIDNEYS: Normal in size and shape. There is no mass, stone or hydronephrosis. ADRENAL GLANDS: Within normal limits. VASCULAR: There is no aortic aneurysm. BOWEL/MESENTERY: The stomach, small bowel, and colon demonstrate no acute abnormality. There is no free intraperitone al air or fluid. ABDOMINAL WALL: Within normal limits. RETROPERITONEUM: There is no lymphadenopathy. BLADDER: No wall thickening or mass. REPRODUCTIVE: Large calcified fibroid is again noted within the uterus. Small amount of fluid is identified in the pelvic cul-de-sac. INGUINAL: There is no lymphadenopathy or hernia. MUSCULOSKELETAL: Within normal limits for patient age. CONCLUSION: 1. Calcified uterine fibroid again noted. 2. Small amount of free fluid in the pelvis. 3. No evidence of acute intestinal abnormality. 4. Otherwise stable exam without any additional significant findings. Praful Sprague MD on January 04, 2018 at 16:29 Board Certified Radiologist. This report was verified electronically.
--- NOTE | 2018-01-04 17:58 | PD ---
Physical Exam Date Seen by Provider: Jan 04, 2018 Time Seen by Provider: 13:30 Narrative I, Dr. Camarillo, have reviewed the advance practice practitioner's documentation and am in agreement, met with the patient face to face, made the diagnosis, and the medical decision making was done by me. *My assessment and Findings: Patient seen and evaluated in the ER with nurse practitioner, please see nurse practitioner note for further details. She came in brought in by EMS for abdominal pains, has had some history of psychiatric issues. She was given Zofran on the ambulance and at that time they noted that she became very bradycardic, heart rates in the 40s. She has EKG showing signs of AV block. She was tender diffusely in the abdomen on evaluation. Appears to be in moderate distress. Lab work and CAT scan was ordered for further evaluation. Laboratory Tests Test 01/04/18 14:00 White Blood Count 14.0 TH/MM3 (4.0-11.0) Hemoglobin 11.4 GM/DL (11.6-15.3) Hematocrit 34.8 % (35.0-46.0) Neutrophils (%) (Auto) 80.1 % (16.0-70.0) Neutrophils # (Auto) 11.2 TH/MM3 (1.8-7.7) Activated Partial Thromboplast Time 24.0 SEC (24.3-30.1) Urine Turbidity HAZY (CLEAR) Urine Ketones 10 mg/dL (NEG) Urine Occult Blood MOD (NEG) Urine RBC 171 /hpf (0-3) Urine Bacteria OCC /hpf (NONE) Urine Mucus MOD /lpf (OCC) Calcium Level 8.4 MG/DL (8.5-10.1) Chloride Level 108 MEQ/L (98-107) Urine Cannabinoids Screen POS (NEG) Last 24 hours Impressions Abdomen/Pelvis CT 01/04/18 1336 Signed Impressions: Service Date/Time: December 15:07 - CONCLUSION: 1. Calcified uterine fibroid again noted. 2. Small amount of free fluid in the pelvis. 3. No evidence of acute intestinal abnormality. 4. Otherwise stable exam without any additional significant findings. Praful Sprague MD CT of the abdomen did not show any signs of acute processes. At this point, my plan would be to admit her for observation regarding the bradycardia. I suspect that it could be secondary to medication side effect or medication interactions. Case is discussed with hospitalist service for admission. Data Data Last Documented VS Vital Signs Date Time Temp Pulse Resp B/P (MAP) Pulse Ox O2 Delivery O2 Flow Rate FiO2 01/04/18 16:30 48 16 171/81 (111) 98 Room Air 01/04/18 13:46 98.0 Orders Orders Beta Hcg (Quant/Titer) (01/04/18 13:36) Complete Blood Count With Diff (01/04/18 13:36) Comprehensive Metabolic Panel (01/04/18 13:36) Lipase (01/04/18 13:36) Prothrombin Time / Inr (Pt) (01/04/18 13:36) Act Partial Throm Time (Ptt) (01/04/18 13:36) Urinalysis - C+S If Indicated (01/04/18 13:36) Ct Abd/Pel W Iv Contrast(Rout) (01/04/18 13:36) Iv Access Insert/Monitor (01/04/18 13:36) Ecg Monitoring (01/04/18 13:36) Oximetry (01/04/18 13:36) Sodium Chlor 0.9% 1000 Ml Inj (Ns 1000 M (01/04/18 13:36) Sodium Chloride 0.9% Flush (Ns Flush) (01/04/18 13:45) Electrocardiogram (01/04/18 13:36) Ketorolac Inj (Toradol Inj) (01/04/18 13:45) Ed Urine Pregnancytest Poc (01/04/18 13:36) Lorazepam Inj (Ativan Inj) (01/04/18 13:45) Drug Screen, Random Urine (01/04/18 13:59) Iohexol 350 Inj (Omnipaque 350 Inj) (01/04/18 15:09) Admit Order (Ed Use Only) (01/04/18 17:35) Labs Laboratory Tests Test 01/04/18 14:00 White Blood Count 14.0 TH/MM3 Red Blood Count 4.05 MIL/MM3 Hemoglobin 11.4 GM/DL Hematocrit 34.8 % Mean Corpuscular Volume 85.9 FL Mean Corpuscular Hemoglobin 28.2 PG Mean Corpuscular Hemoglobin Concent 32.8 % Red Cell Distribution Width 16.2 % Platelet Count 264 TH/MM3 Mean Platelet Volume 9.0 FL Neutrophils (%) (Auto) 80.1 % Lymphocytes (%) (Auto) 15.6 % Monocytes (%) (Auto) 3.7 % Eosinophils (%) (Auto) 0.3 % Basophils (%) (Auto) 0.3 % Neutrophils # (Auto) 11.2 TH/MM3 Lymphocytes # (Auto) 2.2 TH/MM3 Monocytes # (Auto) 0.5 TH/MM3 Eosinophils # (Auto) 0.0 TH/MM3 Basophils # (Auto) 0.0 TH/MM3 CBC Comment DIFF FINAL Differential Comment Prothrombin Time 10.8 SEC Prothromb Time International Ratio 1.1 RATIO Activated Partial Thromboplast Time 24.0 SEC Urine Color YELLOW Urine Turbidity HAZY Urine pH 7.0 Urine Specific [place] 1.021 Urine Protein TRACE mg/dL Urine Glucose (UA) NEG mg/dL Urine Ketones 10 mg/dL Urine Occult Blood MOD Urine Nitrite NEG Urine Bilirubin NEG Urine Urobilinogen LESS THAN 2.0 MG/DL Urine Leukocyte Esterase NEG Urine RBC 171 /hpf Urine WBC 1 /hpf Urine Squamous Epithelial Cells 1 /hpf Urine Bacteria OCC /hpf Urine Mucus MOD /lpf Microscopic Urinalysis Comment CULT NOT INDICATED Blood Urea Nitrogen 8 MG/DL Creatinine 0.77 MG/DL Random Glucose 100 MG/DL Total Protein 7.5 GM/DL Albumin 3.7 GM/DL Calcium Level 8.4 MG/DL Alkaline Phosphatase 58 U/L Aspartate Amino Transf (AST/SGOT) 22 U/L Alanine Aminotransferase (ALT/SGPT) 16 U/L Total Bilirubin 0.2 MG/DL Sodium Level 139 MEQ/L Potassium Level 3.6 MEQ/L Chloride Level 108 MEQ/L Carbon Dioxide Level 23.1 MEQ/L Anion Gap 8 MEQ/L Estimat Glomerular Filtration Rate 104 ML/MIN Lipase 114 U/L Human Chorionic Gonadotropin, Quant LESS THAN 1 MIU/ML Urine Opiates Screen NEG Urine Barbiturates Screen NEG Urine Amphetamines Screen NEG Urine Benzodiazepines Screen NEG Urine Cocaine Screen NEG Urine Cannabinoids Screen POS [facility] Medical Record Reviewed: Yes Supervised Visit with VINOD: Yes Diagnosis Primary Impression: Cardiac arrhythmia Qualified Codes: I49.9 - Cardiac arrhythmia, unspecified Additional Impression: Abdominal pain Qualified Codes: R10.30 - Lower abdominal pain, unspecified Admitting Information Admitting Physician Requests: Admit Condition: Stable Vahid Camarillo MD Jan 04, 2018 17:58
[2018-01-04] MEDS ORDERED: NALOXONE HCL 0.4 MG/ML AMP IV PUSH PRN (19:15)
[2018-01-04] MEDS: HEPARIN SODIUM - SQ 10,000 UNITS/ML VIAL SQ SCH (20:56)
[2018-01-04 21:32] LABS: TROPONIN I LESS THAN 0.02 NG/ML (0.02-0.05)
[2018-01-04 22:57] LABS: MAGNESIUM 1.9 MG/DL (1.5-2.5); PHOSPHORUS 3.6 MG/DL (2.5-4.9)
[2018-01-04] MEDS ORDERED: CHLORHEXIDINE GLUCONATE 2 % 1 PACK (2 CLOTHS)(extra cloths) TOPICAL PRN (23:15)
--- NOTE | 2018-01-04 23:41 | HHI.HP ---
[facility] Unknown Admission Diagnosis Cardiac dysrhthmia; complete heart block>SR Diagnoses: Chief Complaint: Abdominal pain Travel History International Travel<30 Days: No Contact w/Intl Traveler <30 Da: No Traveled to Known Affected Are: No History of Present Illness 32-year-old female with a history of migraines was brought in by [facility] today with abdominal pain and a questionable complete heart block. Patient was having severe pain at home and fell to the ground and her cousin called [facility]. She states she passed out. When [facility] arrived patient was given Zofran and had EKG changes with a complete heart block. Upon arrival to the emergency room patient's heart rhythm has resolved and was bradycardic. She complains of abdominal pain in the epigastric region for the past 2 days, with associated nausea and vomiting. She states she has stabbing chest pain as well with no radiation. She is selective with which questions she answers. She does admit to marijuana use but not in the last few days. She denies any fever or chill. She states he mom has CHF and her grandma just of it. Review of Systems ROS Limitations: Uncooperative Except as stated in HPI: all other systems reviewed are Neg Past Family Social History Past Medical History Migraines Past Surgical History appendectomy Reported Medications Reported Meds & Active Scripts Active Zofran Odt (Ondansetron Odt) 4 Mg Tab 4 Mg SL Q6HR PRN Fioricet (Eienabsjax-Ubfdselgfcguz-Usnbhwiz) 50-300-40 Mg Cap 1 Cap PO Q4H PRN Reported Xanax (Alprazolam) 2 Mg Tab 2 Mg PO Q8H PRN Hydrocodon-Acetamin 7.5-325/15 (Hydrocodone/Acetaminophen) 7.5 Mg-325 Mg/15 Ml ( 15 Ml) Solution 7.5 Q6HR Allergies: Coded Allergies: codeine (Unverified Allergy, Severe, ANAPHALAXIS, 08/09/17) doxycycline (Unverified Allergy, Severe, Anaphylaxis, 08/09/17) morphine (Verified Adverse Reaction, Mild, Hallucinations, 08/09/17) Active Ordered Medications Current Medications Medications (Trade) Dose Ordered Sig/Mesha Route Start Time Stop Time Status Last Admin (NS Flush) 2 ml UNSCH PRN IV FLUSH 01/04/18 13:45 (Narcan Inj) 0.4 mg UNSCH PRN IV PUSH 01/04/18 19:15 (Heparin Inj) 5,000 units Q8H SQ 01/04/18 20:00 01/04/18 20:56 Miscellaneous Information Patient in critical care unit? Ass... [id number] .XX 01/04/18 23:15 01/04/18 23:15 (Chlorhexidine 2% Cloth) 3 pack DAILY@04 TOPICAL 01/05/18 04:00 01/09/18 04:01 (Chlorhexidine 2% Cloth) 3 pack UNSCH PRN TOPICAL 01/04/18 23:15 01/09/18 23:09 Family History Mom: heart disease, chf Social History Tobacco use: 1 PPD Alcohol use: Denies Illicit drug use: Marijuana Physical Exam Vital Signs Vital Signs Date Time Temp Pulse Resp B/P (MAP) Pulse Ox O2 Delivery O2 Flow Rate FiO2 01/04/18 23:11 42 01/04/18 22:33 60 14 103/75 (84) 98 01/04/18 20:57 45 17 134/62 (86) 99 Room Air 01/04/18 19:26 98 01/04/18 18:30 48 16 135/70 (91) 99 Room Air 01/04/18 16:30 48 16 171/81 (111) 98 Room Air 01/04/18 15:30 45 16 162/71 (101) 99 Room Air 01/04/18 15:01 16 01/04/18 13:46 98.0 39 25 140/65 (90) 97 Room Air 01/04/18 13:46 97 Room Air 01/04/18 13:36 98.0 50 18 140/65 (90) 99 Physical Exam GENERAL: This is a well-nourished, well-developed patient, in no apparent distress. SKIN: No rashes, ecchymoses or lesions. Cool and dry. HEAD: Atraumatic. Normocephalic. EYES: Pupils equal round and reactive. Extraocular motions intact. ENT: Nose without bleeding, purulent drainage or septal hematoma. Airway patent. NECK: Trachea midline. No JVD or lymphadenopathy. . CARDIOVASCULAR: Regular rate and rhythm without murmurs, gallops, or rubs. RESPIRATORY: Clear to auscultation. Breath sounds equal bilaterally. No wheezes , rales, or rhonchi. GASTROINTESTINAL: Abdomen soft, RLQ and epigastric tenderness, nondistended. MUSCULOSKELETAL: Extremities without clubbing, cyanosis, or edema. NEUROLOGICAL: Awake and alert. Uncooperative Motor and sensory grossly within normal limits. Normal speech. Laboratory Laboratory Tests Test 01/04/18 14:00 01/04/18 20:25 01/04/18 20:35 01/04/18 22:45 White Blood Count 14.0 Red Blood Count 4.05 Hemoglobin 11.4 Hematocrit 34.8 Mean Corpuscular Volume 85.9 Mean Corpuscular Hemoglobin 28.2 Mean Corpuscular Hemoglobin Concent 32.8 Red Cell Distribution Width 16.2 Platelet Count 264 Mean Platelet Volume 9.0 Neutrophils (%) (Auto) 80.1 Lymphocytes (%) (Auto) 15.6 Monocytes (%) (Auto) 3.7 Eosinophils (%) (Auto) 0.3 Basophils (%) (Auto) 0.3 Neutrophils # (Auto) 11.2 Lymphocytes # (Auto) 2.2 Monocytes # (Auto) 0.5 Eosinophils # (Auto) 0.0 Basophils # (Auto) 0.0 CBC Comment DIFF FINAL Differential Comment Prothrombin Time 10.8 Prothromb Time International Ratio 1.1 Activated Partial Thromboplast Time 24.0 Urine Color YELLOW Urine Turbidity HAZY Urine pH 7.0 Urine Specific [place] 1.021 Urine Protein TRACE Urine Glucose (UA) NEG Urine Ketones 10 Urine Occult Blood MOD Urine Nitrite NEG Urine Bilirubin NEG Urine Urobilinogen LESS THAN 2.0 Urine Leukocyte Esterase NEG Urine RBC 171 Urine WBC 1 Urine Squamous Epithelial Cells 1 Urine Bacteria OCC Urine Mucus MOD Microscopic Urinalysis Comment CULT NOT INDICATED Blood Urea Nitrogen 8 Creatinine 0.77 Random Glucose 100 Total Protein 7.5 Albumin 3.7 Calcium Level 8.4 Alkaline Phosphatase 58 Aspartate Amino Transf (AST/SGOT) 22 Alanine Aminotransferase (ALT/SGPT) 16 Total Bilirubin 0.2 Sodium Level 139 Potassium Level 3.6 Chloride Level 108 Carbon Dioxide Level 23.1 Anion Gap 8 Estimat Glomerular Filtration Rate 104 Lipase 114 Human Chorionic Gonadotropin, Quant LESS THAN 1 Urine Opiates Screen NEG Urine Barbiturates Screen NEG Urine Amphetamines Screen NEG Urine Benzodiazepines Screen NEG Urine Cocaine Screen NEG Urine Cannabinoids Screen POS Total Creatine Kinase 184 Troponin I LESS THAN 0.02 Phosphorus Level 3.6 Magnesium Level 1.9 Result Diagram: 01/04/18 1400 01/04/18 1400 Imaging Last Impressions Abdomen/Pelvis CT 01/04/18 9146 Signed Impressions: Service Date/Time: December 15:07 - CONCLUSION: 1. Calcified uterine fibroid again noted. 2. Small amount of free fluid in the pelvis. 3. No evidence of acute intestinal abnormality. 4. Otherwise stable exam without any additional significant findings. MD Anshu Ortiz VTE Risk Assessment Caprinconrad VTE Risk Assessment: No/Low Risk (score <= 1) Caprini Risk Assessment Model Point Value = 1 Point Value = 2 Point Value = 3 Point Value = 5 Age 41-60 Minor surgery BMI > 25 kg/m2 Swollen legs Varicose veins or History of unexplained or recurrent spontaneous Oral contraceptives or hormone replacement Sepsis (< 1 month) Serious lung disease, including pneumonia (< 1 month) Abnormal pulmonary function Acute myocardial infarction Congestive heart failure (< 1 month) History of inflammatory bowel disease Medical patient at bed rest Age 61-74 Arthroscopic surgery Major open surgery (> 45 min) Laparoscopic surgery (> 45 min) Malignancy Confined to bed (> 72 hours) Immobilizing plaster cast Central venous access Age >= 75 History of VTE Family history of VTE Factor V Leiden Prothrombin [id number] Lupus anticoagulant Anticardiolipin antibodies Elevated serum homocysteine Heparin-induced thrombocytopenia Other congenital or acquired thrombophilia Stroke (< 1 month) Elective arthroplasty Hip, pelvis, or leg fracture Acute spinal cord injury (< 1 month) Prophylaxis Regimen Total Risk Factor Score Risk Level Prophylaxis Regimen 0-1 Low Early ambulation 2 Moderate Order ONE of the following: *Sequential Compression Device (SCD) *Heparin 5000 units SQ BID 3-4 Higher Order ONE of the following medications: *Heparin 5000 units SQ TID *Enoxaparin/Lovenox 40 mg SQ daily (WT < 150 kg, CrCl > 30 mL/min) *Enoxaparin/Lovenox 30 mg SQ daily (WT < 150 kg, CrCl > 10-29 mL/min) *Enoxaparin/Lovenox 30 mg SQ BID (WT < 150 kg, CrCl > 30 mL/min) AND/OR *Sequential Compression Device (SCD) 5 or more Highest Order ONE of the following medications: *Heparin 5000 units SQ TID (Preferred with Epidurals) *Enoxaparin/Lovenox 40 mg SQ daily (WT < 150 kg, CrCl > 30 mL/min) *Enoxaparin/Lovenox 30 mg SQ daily (WT < 150 kg, CrCl > 10-29 mL/min) *Enoxaparin/Lovenox 30 mg SQ BID (WT < 150 kg, CrCl > 30 mL/min) AND *Sequential Compression Device (SCD) Assessment and Plan Problem List: (1) Cardiac arrhythmia ICD Code: I49.9 - Cardiac arrhythmia, unspecified Status: Acute (2) Abdominal pain ICD Code: R10.9 - Unspecified abdominal pain Status: Acute Assessment and Plan 32-year-old female with a history of migraines was brought in by [facility] today with abdominal pain and a questionable complete heart block. . Abdominal pain, suspect gastritis Abdominal CT reviewed and shows a calcified uterine fibroid, and small amount of free fluid in the pelvis. No acute abnormalities -Pain management IV Toradol -IVF for hydration -Patient will need outpatient follow-up for gynecology for uterine fibroid -Protonix IV BID, GI cocktail given -Consult GI for recommendations Cardiac arrhythmia, complete heart block at time of administration of Zofran currently SB with first degree AV block Symptomatic Bradycardia EKG reviewed and shows SB with first degree AV block Troponin 0.02 -Serial troponin and EKGs -Consult cardiology for recommendations -2d echo ordered -D dimer ordered, if elevated will order vq scan DVT prophylaxis: Heparin Discussed Condition With Patient and RN and Dr. Piper Problem Qualifiers (1) Cardiac arrhythmia: Qualified Codes: I49.9 - Cardiac arrhythmia, unspecified (2) Abdominal pain: Qualified Codes: R10.30 - Lower abdominal pain, unspecified Shannan Colon Jan 04, 2018 23:41
[2018-01-05] VITALS (9 sets, daily range): BP systolic 106–163; BP diastolic 60–90; PULSE 41–103; RESP 16–20; TEMP 92.8–99.2; O2SAT 97–100
[2018-01-05] MEDS ORDERED: ATROPINE SULFATE 1 MG/ML VIAL IV PUSH PRN (01:30)
[2018-01-05] MEDS ORDERED: KETOROLAC TROMETHAMINE 30 MG/ML (IVP) VIAL IV PUSH ONE (01:45)
[2018-01-05 02:13] LABS: AUTOMATED NEUTROPHIL # 5.8 TH/MM3 (1.8-7.7); BASOPHIL # 0.1 TH/MM3 (0-0.2); BASOPHIL % 0.7 % (0.0-2.0); HEMATOCRIT 36.7 % (35.0-46.0); HEMOGLOBIN 12.2 GM/DL (11.6-15.3); LYMPH % 20.9 % (9.0-44.0); LYMPHOCYTE # 1.6 TH/MM3 (1.0-4.8); MEAN CELL VOLUME 85.5 FL (80.0-100.0); MEAN CORPUSCULAR HEMOGLOBIN 28.4 PG (27.0-34.0); MEAN CORPUSCULAR HGB CONC 33.3 % (32.0-36.0); MEAN PLATELET VOLUME 9.2 FL (7.0-11.0); MONO % 4.7 % (0.0-8.0); MONOCYTE # 0.4 TH/MM3 (0-0.9); NEUT % 73.7 % (16.0-70.0); PLATELET COUNT 259 TH/MM3 (150-450); RED BLOOD COUNT 4.29 MIL/MM3 (4.00-5.30); WHITE BLOOD COUNT 7.9 TH/MM3 (4.0-11.0)
[2018-01-05 02:24] LABS: BICARBONATE 23.9 MEQ/L (21.0-32.0); BLOOD UREA NITROGEN 7 MG/DL (7-18); CALCIUM 8.9 MG/DL (8.5-10.1); CHLORIDE 107 MEQ/L (98-107); CREATININE 0.68 MG/DL (0.50-1.00); GLOMERULAR FILTRATION RATE 121 ML/MIN (>89); GLUCOSE,RANDOM 94 MG/DL (74-106); SODIUM (NA) 138 MEQ/L (136-145)
[2018-01-05 02:27] LABS: TROPONIN I LESS THAN 0.02 NG/ML (0.02-0.05)
[2018-01-05] MEDS ORDERED: ALUMINUM/MAGNESIUM/SIMETH 30 ML CUP PO ONE (02:30)
[2018-01-05] MEDS ORDERED: CHLORHEXIDINE GLUCONATE 2 % 1 PACK (2 CLOTHS)(taper/protocol) TOPICAL SCH (04:00)
[2018-01-05] MEDS: PANTOPRAZOLE SODIUM 40 MG VIAL IV PUSH SCH ×2 (04:56→16:15)
[2018-01-05] MEDS: HEPARIN SODIUM - SQ 10,000 UNITS/ML VIAL SQ SCH ×2 (04:57→16:15)
[2018-01-05] MEDS ORDERED: ENOXAPARIN SODIUM 60 MG/0.6 ML SYRINGE SQ ONE (05:30)
[2018-01-05] MEDS ORDERED: HEPARIN-D5W 25,000 U/250 ML 250 ML IV PRN ×2 (05:30→05:45)
--- NOTE | 2018-01-05 05:45 | RADRPT ---
EXAM DATE/TIME: 01/05/2018 05:25 [facility] COMPARISON: CHEST SINGLE AP, July 03, 2016, 0:50. INDICATIONS : Shortness of breath MEDICAL HISTORY : Hypertension. Ovarian cysts, fibroid tumor. SURGICAL HISTORY : None. ENCOUNTER: Initial ACUITY: 2 days PAIN SCORE: 6/10 LOCATION: Bilateral chest FINDINGS: The lungs are clear without infiltrate, nodule, or mass. There is no appreciable pleural effusion fo r technique. Heart and mediastinum are unremarkable. CONCLUSION: No acute cardiopulmonary disease. Kevin Torres MD on January 05, 2018 at 5:43 Board Certified Radiologist. This report was verified electronically.
--- NOTE | 2018-01-05 08:34 | PD.CONS ---
HPI History of Present Illness This is a 32 year old female who presented to the ER with "chest pains," n/v, and a heavy period. Reportedly she passed out at home and her cousin called an ambulance. At that time she appeared to have EKG changes which have since resolved. SHe indicates her pain is in the epigastric region and started yesterday. The pain has been constant. Never had pain like that before. N/v started yesterday. Admits seeing some blood in it. Never had EGD or colonoscopy. Denies NSAID use. Says she has been having seizures. Admits weight loss, fevers, and every symptom she is asked about including night sweats and polydipsia. Other questions pt will not answer. Pt is poor historian. (Elsa Harris) PFSH Past Medical History Migraines seizures per pt Past Surgical History appendectomy (Elsa Harris) Coded Allergies: codeine (Unverified Allergy, Severe, ANAPHALAXIS, 08/09/17) doxycycline (Unverified Allergy, Severe, Anaphylaxis, 08/09/17) morphine (Verified Adverse Reaction, Mild, Hallucinations, 08/09/17) Family History Mom: heart disease, chf Social History Tobacco use: 1 PPD Alcohol use: Denies Illicit drug use: Marijuana (Elsa Harris) Review of Systems Constitutional: COMPLAINS OF: Diaphoretic episodes, Fatigue, Fever, Weight loss , Night Sweats Eyes: COMPLAINS OF: Blurred vision Cardiovascular: COMPLAINS OF: Chest pain Gastrointestinal: COMPLAINS OF: Abdominal pain, Nausea, Vomiting, Hematemesis Genitourinary: COMPLAINS OF: Hematuria Musculoskeletal: COMPLAINS OF: Joint pain, DENIES: Muscle aches Integumentary: DENIES: Jaundice Pt answering yes to every symptom (Elsa Harris) GI Exam Vitals I&O Vital Signs Date Time Temp Pulse Resp B/P (MAP) Pulse Ox O2 Delivery O2 Flow Rate FiO2 01/05/18 03:57 98.2 47 16 161/88 (112) 97 01/05/18 01:02 98.2 103 19 163/90 (114) 100 01/04/18 23:11 42 01/04/18 22:33 60 14 103/75 (84) 98 01/04/18 20:57 45 17 134/62 (86) 99 Room Air 01/04/18 19:26 98 01/04/18 18:30 48 16 135/70 (91) 99 Room Air 01/04/18 16:30 48 16 171/81 (111) 98 Room Air 01/04/18 15:30 45 16 162/71 (101) 99 Room Air 01/04/18 15:01 16 01/04/18 13:46 98.0 39 25 140/65 (90) 97 Room Air 01/04/18 13:46 97 Room Air 01/04/18 13:36 98.0 50 18 140/65 (90) 99 I/O 01/04/18 01/04/18 01/04/18 01/05/18 01/05/18 01/05/18 07:00 15:00 23:00 07:00 15:00 23:00 Intake Total 1000 ml Balance 1000 ml Intake IV Total 1000 ml Imaging Last Impressions Chest X-Ray 01/05/18 0000 Signed Impressions: Service Date/Time: Friday, January 05, 2018 05:25 - CONCLUSION: No acute cardiopulmonary disease. Kevin Torres MD Abdomen/Pelvis CT 01/04/18 1336 Signed Impressions: Service Date/Time: December 15:07 - CONCLUSION: 1. Calcified uterine fibroid again noted. 2. Small amount of free fluid in the pelvis. 3. No evidence of acute intestinal abnormality. 4. Otherwise stable exam without any additional significant findings. Praful Sprague MD Laboratory Test 01/04/18 14:00 01/04/18 20:25 01/04/18 20:35 01/04/18 22:45 White Blood Count 14.0 TH/MM3 Red Blood Count 4.05 MIL/MM3 Hemoglobin 11.4 GM/DL Hematocrit 34.8 % Mean Corpuscular Volume 85.9 FL Mean Corpuscular Hemoglobin 28.2 PG Mean Corpuscular Hemoglobin Concent 32.8 % Red Cell Distribution Width 16.2 % Platelet Count 264 TH/MM3 Mean Platelet Volume 9.0 FL Neutrophils (%) (Auto) 80.1 % Lymphocytes (%) (Auto) 15.6 % Monocytes (%) (Auto) 3.7 % Eosinophils (%) (Auto) 0.3 % Basophils (%) (Auto) 0.3 % Neutrophils # (Auto) 11.2 TH/MM3 Lymphocytes # (Auto) 2.2 TH/MM3 Monocytes # (Auto) 0.5 TH/MM3 Eosinophils # (Auto) 0.0 TH/MM3 Basophils # (Auto) 0.0 TH/MM3 CBC Comment DIFF FINAL Differential Comment Prothrombin Time 10.8 SEC Prothromb Time International Ratio 1.1 RATIO Activated Partial Thromboplast Time 24.0 SEC Urine Color YELLOW Urine Turbidity HAZY Urine pH 7.0 Urine Specific Yarnell 1.021 Urine Protein TRACE mg/dL Urine Glucose (UA) NEG mg/dL Urine Ketones 10 mg/dL Urine Occult Blood MOD Urine Nitrite NEG Urine Bilirubin NEG Urine Urobilinogen LESS THAN 2.0 MG/DL Urine Leukocyte Esterase NEG Urine RBC 171 /hpf Urine WBC 1 /hpf Urine Squamous Epithelial Cells 1 /hpf Urine Bacteria OCC /hpf Urine Mucus MOD /lpf Microscopic Urinalysis Comment CULT NOT INDICATED Blood Urea Nitrogen 8 MG/DL Creatinine 0.77 MG/DL Random Glucose 100 MG/DL Total Protein 7.5 GM/DL Albumin 3.7 GM/DL Calcium Level 8.4 MG/DL Alkaline Phosphatase 58 U/L Aspartate Amino Transf (AST/SGOT) 22 U/L Alanine Aminotransferase (ALT/SGPT) 16 U/L Total Bilirubin 0.2 MG/DL Sodium Level 139 MEQ/L Potassium Level 3.6 MEQ/L Chloride Level 108 MEQ/L Carbon Dioxide Level 23.1 MEQ/L Anion Gap 8 MEQ/L Estimat Glomerular Filtration Rate 104 ML/MIN Lipase 114 U/L Human Chorionic Gonadotropin, Quant LESS THAN 1 MIU/ML Urine Opiates Screen NEG Urine Barbiturates Screen NEG Urine Amphetamines Screen NEG Urine Benzodiazepines Screen NEG Urine Cocaine Screen NEG Urine Cannabinoids Screen POS Total Creatine Kinase 184 U/L Troponin I LESS THAN 0.02 NG/ML Phosphorus Level 3.6 MG/DL Magnesium Level 1.9 MG/DL Nasal Screen MRSA (PCR) MRSA NOT DETECTED Test 01/05/18 01:50 01/05/18 03:10 White Blood Count 7.9 TH/MM3 Red Blood Count 4.29 MIL/MM3 Hemoglobin 12.2 GM/DL Hematocrit 36.7 % Mean Corpuscular Volume 85.5 FL Mean Corpuscular Hemoglobin 28.4 PG Mean Corpuscular Hemoglobin Concent 33.3 % Red Cell Distribution Width 16.0 % Platelet Count 259 TH/MM3 Mean Platelet Volume 9.2 FL Neutrophils (%) (Auto) 73.7 % Lymphocytes (%) (Auto) 20.9 % Monocytes (%) (Auto) 4.7 % Eosinophils (%) (Auto) 0.0 % Basophils (%) (Auto) 0.7 % Neutrophils # (Auto) 5.8 TH/MM3 Lymphocytes # (Auto) 1.6 TH/MM3 Monocytes # (Auto) 0.4 TH/MM3 Eosinophils # (Auto) 0.0 TH/MM3 Basophils # (Auto) 0.1 TH/MM3 CBC Comment DIFF FINAL Differential Comment Hematology Comments Blood Urea Nitrogen 7 MG/DL Creatinine 0.68 MG/DL Random Glucose 94 MG/DL Calcium Level 8.9 MG/DL Sodium Level 138 MEQ/L Potassium Level 3.7 MEQ/L Chloride Level 107 MEQ/L Carbon Dioxide Level 23.9 MEQ/L Anion Gap 7 MEQ/L Estimat Glomerular Filtration Rate 121 ML/MIN Total Creatine Kinase 173 U/L Troponin I LESS THAN 0.02 NG/ML D-Dimer Quantitative (PE/DVT) 1.28 MG/L FEU Physical Examination HEENT: PERRL; normocephalic; atraumatic; no jaundice. CHEST: CTA CARDIAC: RRR +murmur ABDOMEN: Soft, nondistended,epigastric TTP; no hepatosplenomegaly; bowel sounds are present in all four quadrants. EXTREMITIES: No clubbing, cyanosis, or edema. SKIN: Normal; no rash; no jaundice. PUMPER HAND: lethargic but oriented (Elsa Harris) Assessment and Plan Plan ASSESSMENT - epigastric pain, n/v, scant red blood in emesis - unclear etiology. never had EGD. hx unclear and i have doubts about her reliability as she tells me chest pain brought her to ER and then later tells me it was hematuria and polydipsia. HH currently WNL. PLAN - EGD today - obtain consent - NPO after midnight - monitor labs - notify GI of active bleeding - further recs to follow pt seen by myself and Dr Abdullahi and this note is written on his behalf (Elsa Harris) Physician Comments Patient seen and examined Agree with above Continue with current supportive care Monitor labs Plan an EGD (Lazaro Abdullahi MD) Elsa Harris Jan 05, 2018 08:34 Lazaro Abdullahi MD Jan 05, 2018 17:27
--- NOTE | 2018-01-05 10:56 | RADRPT ---
EXAM DATE/TIME: 01/05/2018 10:12 [facility] COMPARISON: No previous studies available for comparison. INDICATIONS : Dyspnea with substernal chest pain. DOSE: 8.3 mCi Tc99m MAA IV 0.97 mCi Tc99m DTPA aerosol MEDICAL HISTORY : Complete heart block. SURGICAL HISTORY : Appendectomy. ENCOUNTER: Initial ACUITY: 1 day PAIN SCALE: 6/10 LOCATION: Left chest TECHNIQUE: Following five minutes of tidal breathing of DTPA aerosol, planar images of the lungs were performed in eight projections. The patient was then injected with MAA, and eight-view perfusion scan was perf ormed. FINDINGS: There is a homogeneous pattern of aerosol delivery to the periphery of both lungs. No focal ventilat ory defects are seen. The perfusion lung scan demonstrates a homogenous pattern of uptake in both lungs. No segmental or s ubsegmental defects are seen. CONCLUSION: 1. Negative examination. Collins Cai MD on January 05, 2018 at 10:54 Board Certified Radiologist. This report was verified electronically.
--- NOTE | 2018-01-05 11:02 | HHI.PR ---
Subjective Remarks Patient seen this morning. She denies any chest pain or shortness of breath. Denies any nausea or vomiting. Objective Vital Signs Date Time Temp Pulse Resp B/P (MAP) Pulse Ox O2 Delivery O2 Flow Rate FiO2 01/05/18 10:26 98.2 50 18 153/76 (101) 98 01/05/18 04:08 49 01/05/18 03:57 98.2 47 16 161/88 (112) 97 01/05/18 01:15 41 01/05/18 01:02 98.2 103 19 163/90 (114) 100 01/04/18 23:11 42 01/04/18 22:33 60 14 103/75 (84) 98 01/04/18 20:57 45 17 134/62 (86) 99 Room Air 01/04/18 19:26 98 01/04/18 18:30 48 16 135/70 (91) 99 Room Air 01/04/18 16:30 48 16 171/81 (111) 98 Room Air 01/04/18 15:30 45 16 162/71 (101) 99 Room Air 01/04/18 15:01 16 01/04/18 13:46 98.0 39 25 140/65 (90) 97 Room Air 01/04/18 13:46 97 Room Air 01/04/18 13:36 98.0 50 18 140/65 (90) 99 I/O 01/04/18 01/04/18 01/04/18 01/05/18 01/05/18 01/05/18 07:00 15:00 23:00 07:00 15:00 23:00 Intake Total 1000 ml Balance 1000 ml Intake IV Total 1000 ml # Voids 1 Result Diagram: 01/05/18 0150 01/05/18 015 Objective Remarks GENERAL: She is lying in bed. Appears comfortable. SKIN: Warm and dry. HEAD: Normocephalic. EYES: No scleral icterus. No injection or drainage. NECK: Supple, trachea midline. No JVD. CARDIOVASCULAR: Regular rate and rhythm without murmurs, gallops, or rubs. RESPIRATORY: Breath sounds equal bilaterally. No accessory muscle use. GASTROINTESTINAL: Abdomen soft, non-tender, nondistended. MUSCULOSKELETAL: No cyanosis, or edema. BACK: Nontender without obvious deformity. No CVA tenderness. A/P Assessment and Plan 32-year-old female with a history of migraines was brought in by [facility] today with abdominal pain and a questionable complete heart block. . //Abdominal pain, suspect gastritis //Hematemesis reported Abdominal CT reviewed and shows a calcified uterine fibroid, and small amount of free fluid in the pelvis. No acute abnormalities -Pain management IV Toradol -IVF for hydration -Patient will need outpatient follow-up for gynecology for uterine fibroid -Protonix IV BID, GI cocktail given -Consult GI for recommendations = GI following. Pending EGD. Appreciate assistance. //Cardiac arrhythmia, complete heart block at time of administration of Zofran currently SB with first degree AV block //Symptomatic Bradycardia //EKG reviewed and shows SB with first degree AV block //Troponin 0.02 -Serial troponin and EKGs -Consult cardiology for recommendations -2d echo ordered -D dimer ordered, if elevated will order vq scan = D-dimer 1.28 pending VQ scan. Cardiology following. Appreciate assistance. Continue monitoring on telemetry. DVT prophylaxis: Heparin Discharge Planning Pending cardiology and GI clearance. Rk Resendiz MD Jan 05, 2018 11:02
--- NOTE | 2018-01-05 11:38 | MB ---
cc: AFSHAN RUANO M.D. DATE OF CONSULTATION 01/05/2018 REASON FOR CONSULTATION Gabi is a very pleasant 29-year-old lady who presented to the ER with a chief complaint of nausea, vomiting, abdominal pain in the lower abdomen. She reports possibly having a syncopal event at home. I reviewed a environmental monitoring technician strip at approximately 1300 hours on 01/04/2018 which appeared to be consistent with Wenckebach second degree heart block. The patient is still complaining of lower abdominal pain this morning, otherwise denies any fevers, chills, cough, GI or bleeding, PND or orthopnea. PAST HISTORY As per history of present illness. She has a history of: 1. Anemia 2. Asthma 3. Anxiety 4. Hypertension 5. Chronic back pain 6. Bronchitis 7. Abdominal surgery 8. Appendectomy 9. Fibroid tumor removal 10. Tonsillectomy SOCIAL HISTORY Drinks alcohol occasionally, smokes a pack of cigarettes a day. Admits to smoking marijuana. ALLERGIES CODEINE, DOXYCYCLINE, MORPHINE. MEDICATIONS PRIOR TO ADMISSION 1. Zofran 2. Fioricet 3. Xanax 4. Hydrocodone Medications in the hospital. 1. Potassium supplementation 2. Pantoprazole 40 IV q.12 h. 3. Heparin 5000 q.8 h subcu. PHYSICAL EXAMINATION Pulse ranging between 41 and 103, blood pressure 153/76, respiratory rate 18, temperature 98.2. GENERAL: She is alert and oriented times three in no distress NECK: Supple. No JVD. No bruits. CARDIOVASCULAR: S1 and S2. No murmurs, rubs or gallops. LUNGS: Clear to auscultation bilaterally. ABDOMEN: Soft, nontender, and nondistended with positive bowel sounds. EXTREMITIES: Should lower extremity edema. She had an EKG done yesterday 01/04/2018 at 1:50 p.m. which showed Wenckebach, second-degree heart block, Mobitz type I, heart rate of 41 beats per minute. EKG at 1905 on 01/04/2018 showed sinus bradycardia at 43 beats per minute. EKG 01/05/2018 at 01:05 a.m. showed sinus bradycardia at 41 beats per minute. Abdominal/pelvic CT Calcified uterine fibroid again noted. A small amount of free fluid in the pelvis, but no evidence of acute intestinal abnormality, otherwise stable exam without any additional significant findings. Chest x-ray. No acute cardiopulmonary disease. VQ scan negative examination. LABORATORY DATA White count 14.0, hemoglobin 11.4, hematocrit 34.8, platelet count 264, INR 1.1. Sodium 138, potassium 3.7, chloride 107, bicarb 23.9, BUN 7, creatinine 0.68, magnesium 1.9, phosphorus 3.6, troponin less than 0.02 x2. HCG quantitative less than one. Toxicology positive for cannabinoids. FINAL DIAGNOSES 1. Syncope 2. Mobitz I second-degree heart block. 3. Sinus bradycardia 4. Anemia 5. Dehydration 6. Elevated white count DISCUSSION At this point in time, recommend hydration and electrolyte repletion p.r.n. continue telemetry monitoring. We will follow trends in heart rate and symptoms. At this point in time, we will continue to just observe. If the patient is persistently experiencing syncope or near syncope with bradycardia after adequate hydration and electrolyte repletion, we would need to consider the risks and benefit from a pacemaker. MD ELINOR Elliott/DOTTIE /11:11 AM /11:22 AM
[2018-01-05] MEDS ORDERED: D5-1/2 NS + KCL 10 MEQ INJ 1,000 ML IV SCH (12:00)
[2018-01-05] MEDS ORDERED: LIDOCAINE HCL 1% PF 5 ML SYRINGE OTHER ONE (12:00)
[2018-01-05] MEDS ORDERED: PROPOFOL 200 MG/20 ML AMP IV ONE (12:00)
--- NOTE | 2018-01-05 17:31 | PD.PROCEDR ---
GI Procedure PROCEDURE PERFORMED EGD with biopsy INDICATION FOR PROCEDURE Abdominal pain, nausea vomiting PROCEDURE: The procedure, risks and benefits were discussed with Ms. Mendoza and informed consent was obtained. Anesthesia sedated her with Diprivan. She was placed in the left lateral decubitus position. EGD: The Pentax videoscope was introduced through the oropharynx and advanced to the second portion of the duodenum under direct visualization. Retroflexion was performed in the stomach. FINDINGS: The esophagus this appeared to be unremarkable within normal limits The stomach there was punctate erythema noted in the gastric body and antrum but no ulcerations no erosions of the stomach was unremarkable antral biopsies were taken for further evaluation The duodenum there was also punctate erythema noted in the duodenum of unclear significance this too was biopsied ESTIMATED BLOOD LOSS: None SPECIMENS REMOVED: Gastric and duodenal biopsies COMPLICATIONS: None IMPRESSION: Mild gastritis Mild duodenitis PLAN: Await biopsies Recommend PPI Advanced diet Lazaro Abdullahi MD Jan 05, 2018 17:31
--- NOTE | 2018-01-05 18:15 | PD.AMA ---
Against Medical Advice Note Diagnosis: (1) Cardiac arrhythmia (2) Abdominal pain (3) Gastritis (4) Duodenitis (5) Symptomatic bradycardia Discharge Disposition: Against Medical Advice AMA Statement Patient Gabi Mendoza has decided to leave the hospital against medical advice. This patient has the capacity to refuse care and understands the risks of leaving, including permanent disability and/or , and has had an opportunity to ask questions about her condition. The patient has been informed that she may return for care at any time, and follow up has been arranged/ advised. Padma Canchola Jan 05, 2018 18:15
--- NOTE | 2018-01-06 00:05 | EKG ---
Date Performed: 01/05/2018 Time Performed: 01:03:57 PTAGE: 32 years EKG: SINUS BRADYCARDIA WITH FIRST DEGREE AV BLOCK ABNORMAL ECG PREVIOUS TRACING : 01/04/2018 21.37 Since the prior tracing, there has been no significant bolden DOCTOR: Bryanna Collins Interpretating Date/Time 01/06/2018 00:04:16
--- NOTE | 2018-01-06 00:21 | EKG ---
Date Performed: 01/04/2018 Time Performed: 21:37:50 PTAGE: 32 years EKG: SINUS BRADYCARDIA WITH FIRST DEGREE AV BLOCK ABNORMAL ECG PREVIOUS TRACING : 01/04/2018 13.50 Since the prior tracing, there has been no significant bolden DOCTOR: Bryanna Collins Interpretating Date/Time 01/06/2018 00:21:06
--- NOTE | 2018-01-06 01:27 | EKG ---
Date Performed: 01/04/2018 Time Performed: 13:50:39 PTAGE: 32 years EKG: SINUS BRADYCARDIA PACS OCC WITH BLOCK JUNCTIONAL ESCAPE BEATS ABNORMAL RHYTHM ECG PREVIOUS TRACING : 02/28/2012 12.40 Compared to prior tracing, rate slower DOCTOR: Bryanna Collins Interpretating Date/Time 01/06/2018 01:25:03
== END 2018-01-05 18:52 | disposition left against medical advice (07) ==
LOC: NEPC 13:29 → NEDA 17:38 → OBSVTOIN 19:08 → INTOOBSV 19:08 → HIMN 22:40 → NEPGCP 01-05 00:49
PROVIDERS: ADMIT Internal Medicine; ATTEND Internal Medicine
DX: I49.9 Cardiac arrhythmia, unspecified (principal); R10.30 Lower abdominal pain, unspecified; I44.2 Atrioventricular block, complete; G43.909 Migraine, unspecified, not intractable, without status migrainosus; D25.9 Leiomyoma of uterus, unspecified; R00.1 Bradycardia, unspecified; R10.816 Epigastric abdominal tenderness; R07.9 Chest pain, unspecified; R60.0 Localized edema; E86.0 Dehydration; D64.9 Anemia, unspecified; R55 Syncope and collapse; R63.1 Polydipsia; R50.9 Fever, unspecified; R63.0 Anorexia; R61 Generalized hyperhidrosis; K29.80 Duodenitis without bleeding; K29.70 Gastritis, unspecified, without bleeding; R11.2 Nausea with vomiting, unspecified; I10 Essential (primary) hypertension; R06.02 Shortness of breath; J45.909 Unspecified asthma, uncomplicated; F41.9 Anxiety disorder, unspecified; M54.9 Dorsalgia, unspecified; G89.29 Other chronic pain; R94.31 Abnormal electrocardiogram [ECG] [EKG]; F17.210 Nicotine dependence, cigarettes, uncomplicated; F12.90 Cannabis use, unspecified, uncomplicated
CPT/HCPCS: 00731; 43239; 71045; 74177; 78582; 80048; 80053; 80307; 81001; 82550; 83690; 83735; 84100; 84484; 84702; 84703; 85025; 85379; 85610; 85730; 87641; 88305; 88312; 93005; 96361; 96372; 96374; 96375; 96376; 99285; A9540; A9567; C9113; G0378; J1644; J1885; J2060; J3480; J7030; Q9967

== ENCOUNTER 2018-02-25 18:15 | Emergency (ER) | payer SELFPAY ==
[~2018-02-25] VITALS: Ht 180.3 cm; Wt 65.0 kg
[~2018-02-25 18:15] MED LIST changes: +TRAM50TA PO
[2018-02-25 18:23] VITALS: BP 143/93; PULSE 50; RESP 18; TEMP 97.5; O2SAT 100
--- NOTE | 2018-02-25 18:59 | PD ---
HPI Chief Complaint: GI Complaint Time Seen by Provider: 18:49 Travel History International Travel<30 days: No Contact w/Intl Traveler<30days: No Traveled to known affect area: No History of Present Illness HPI This patient was examined with female nurse ski edge painter present all times. Patient is a 32-year-old hysterical female presents emergency department for evaluation of abdominal pain. Patient screaming on arrival, difficult to obtain any history from. She states that she is sharp pain that started suddenly this morning. PFSH Past Medical History Anemia: Yes Asthma: Yes Autoimmune Disease: No Anxiety: Yes Cancer: No Cardiovascular Problems: No Chemotherapy: No Diabetes: No Diminished Hearing: No Endocrine: No Genitourinary: No Hypertension: Yes Musculoskeletal: Yes ( CHRONIC BACK PAIN) Neurologic: No Psychiatric: No Reproductive: No Respiratory: Yes (BRONCHITIS) Immunizations Current: Yes Radiation Therapy: No PNEUMOCCOCAL Vaccine (Year): 3 ?: Not LMP: NOW Menopausal: No : 1 Miscarriage: 1 Ovarian Cysts: Yes Past Surgical History Abdominal Surgery: Yes AICD: No Appendectomy: Yes Genitourinary Surgery: No Gynecologic Surgery: Yes (FIBROID TUMOR) Pacemaker: No Thoracic Surgery: No Tonsillectomy: Yes Other Surgery: Yes Social History Alcohol Use: Yes Tobacco Use: Yes Substance Use: Yes (Marijuana ) Allergies-Medications (Allergen,Severity, Reaction): Coded Allergies: codeine (Unverified Allergy, Severe, ANAPHALAXIS, 02/25/18) doxycycline (Unverified Allergy, Severe, Anaphylaxis, 02/25/18) morphine (Verified Adverse Reaction, Mild, Hallucinations, 02/25/18) Reported Meds & Prescriptions Reported Meds & Active Scripts Active Zofran Odt (Ondansetron Odt) 4 Mg Tab 4 Mg SL Q6HR PRN Fioricet (Wzetzrydvf-Gfthatwdsigwd-Xgtvlgvw) 50-300-40 Mg Cap 1 Cap PO Q4H PRN Tramadol (Tramadol HCl) 50 Mg Tab 50 Mg PO Q6H PRN Reported Xanax (Alprazolam) 2 Mg Tab 2 Mg PO Q8H PRN Hydrocodon-Acetamin 7.5-325/15 (Hydrocodone/Acetaminophen) 7.5 Mg-325 Mg/15 Ml ( 15 Ml) Solution 7.5 Q6HR Review of Systems Except as stated in HPI: all other systems reviewed are Neg Physical Exam Narrative GENERAL: Well-developed, well-nourished, appears uncomfortable, moaning in distress peer SKIN: Focused skin assessment warm/dry. HEAD: Atraumatic. Normocephalic. EYES: Pupils equal and round. No scleral icterus. No injection or drainage. ENT: No nasal bleeding or discharge. Mucous membranes pink and moist. NECK: Trachea midline. No JVD. CARDIOVASCULAR: Regular rate and rhythm. No murmur appreciated. RESPIRATORY: No accessory muscle use. Clear to auscultation. Breath sounds equal bilaterally. GASTROINTESTINAL: Abdomen soft, non-tender, nondistended. Hepatic and splenic margins not palpable. Abdominal exam was extremely limited by patient cooperation. GENITOURINARY: Exam performed with [facility] female nurse ski edge painter present all times, scant blood in the vaginal vault vault appears to be cervical in origin, no bimanual tenderness, no cervical motion tenderness, no discharge MUSCULOSKELETAL: No obvious deformities. No clubbing. No cyanosis. No edema. NEUROLOGICAL: Awake and alert. No obvious cranial nerve deficits. Motor grossly within normal limits. Normal speech. PSYCHIATRIC: Difficult to assess because the patient is moaning and unable or unwilling to provide any history. Data Data Last Documented VS Vital Signs Date Time Temp Pulse Resp B/P (MAP) Pulse Ox O2 Delivery O2 Flow Rate FiO2 02/25/18 22:03 52 18 142/85 (104) 97 Room Air 02/25/18 18:23 97.5 Orders Orders Beta Hcg (Quant/Titer) (02/25/18 18:49) Complete Blood Count With Diff (02/25/18 18:49) Comprehensive Metabolic Panel (02/25/18 18:49) Lipase (02/25/18 18:49) Lactic Acid (02/25/18 18:49) Prothrombin Time / Inr (Pt) (02/25/18 18:49) Act Partial Throm Time (Ptt) (02/25/18 18:49) Urinalysis - C+S If Indicated (02/25/18 18:49) Iv Access Insert/Monitor (02/25/18 18:51) Ecg Monitoring (02/25/18 18:51) Oximetry (02/25/18 18:51) Sodium Chloride 0.9% Flush (Ns Flush) (02/25/18 19:00) Ed Urine Pregnancytest Poc (02/25/18 18:51) Ketorolac Inj (Toradol Inj) (02/25/18 19:00) Diphenhydramine Inj (Benadryl Inj) (02/25/18 19:00) Drug Screen, Random Urine (02/25/18 19:28) Sodium Chlor 0.9% 1000 Ml Inj (Ns 1000 M (02/25/18 19:30) Wet Prep Profile (02/25/18 19:28) Gc And Chlamydia Pcr (02/25/18 19:28) Ct Abd/Pel W Iv Contrast(Rout) (02/25/18 ) Us Pelvis Comp W Transvaginal (02/25/18 ) Cath For Specimen (02/25/18 20:17) Haloperidol Inj (Haldol Inj) (02/25/18 21:00) Lorazepam Inj (Ativan Inj) (02/25/18 21:00) Iohexol 350 Inj (Omnipaque 350 Inj) (02/25/18 22:06) Labs Laboratory Tests Test 02/25/18 19:07 02/25/18 20:47 White Blood Count 9.0 TH/MM3 Red Blood Count 4.53 MIL/MM3 Hemoglobin 12.9 GM/DL Hematocrit 39.3 % Mean Corpuscular Volume 86.9 FL Mean Corpuscular Hemoglobin 28.5 PG Mean Corpuscular Hemoglobin Concent 32.9 % Red Cell Distribution Width 16.6 % Platelet Count 245 TH/MM3 Mean Platelet Volume 8.8 FL Neutrophils (%) (Auto) 76.9 % Lymphocytes (%) (Auto) 18.7 % Monocytes (%) (Auto) 3.5 % Eosinophils (%) (Auto) 0.6 % Basophils (%) (Auto) 0.3 % Neutrophils # (Auto) 6.9 TH/MM3 Lymphocytes # (Auto) 1.7 TH/MM3 Monocytes # (Auto) 0.3 TH/MM3 Eosinophils # (Auto) 0.1 TH/MM3 Basophils # (Auto) 0.0 TH/MM3 CBC Comment DIFF FINAL Differential Comment Prothrombin Time 10.5 SEC Prothromb Time International Ratio 1.0 RATIO Activated Partial Thromboplast Time 27.1 SEC Blood Urea Nitrogen 9 MG/DL Creatinine 0.86 MG/DL Random Glucose 106 MG/DL Total Protein 8.4 GM/DL Albumin 4.0 GM/DL Calcium Level 9.0 MG/DL Alkaline Phosphatase 63 U/L Aspartate Amino Transf (AST/SGOT) 18 U/L Alanine Aminotransferase (ALT/SGPT) 13 U/L Total Bilirubin 0.3 MG/DL Sodium Level 138 MEQ/L Potassium Level 3.7 MEQ/L Chloride Level 106 MEQ/L Carbon Dioxide Level 24.2 MEQ/L Anion Gap 8 MEQ/L Estimat Glomerular Filtration Rate 92 ML/MIN Lactic Acid Level 1.8 mmol/L Lipase 182 U/L Human Chorionic Gonadotropin, Quant LESS THAN 1 MIU/ML Urine Collection Type CATH Urine Color YELLOW Urine Turbidity CLEAR Urine pH 7.5 Urine Specific [place] 1.025 Urine Protein TRACE mg/dL Urine Glucose (UA) NEG mg/dL Urine Ketones NEG mg/dL Urine Occult Blood TRACE Urine Nitrite NEG Urine Bilirubin NEG Urine Urobilinogen 0.2 MG/DL Urine Leukocyte Esterase NEG Urine RBC 4-9 /hpf Urine Squamous Epithelial Cells 0-5 /hpf Urine Amorphous Sediment SMALL Urine Mucus OCC /lpf Microscopic Urinalysis Comment CATH-CULT NOT IND Clue Cells (Wet Prep) NONE SEEN Vaginal Trichomonas (Wet Prep) NONE SEEN Vaginal Yeast (Wet Prep) NONE SEEN Urine Opiates Screen NEG Urine Barbiturates Screen NEG Urine Amphetamines Screen NEG Urine Benzodiazepines Screen NEG Urine Cocaine Screen NEG Urine Cannabinoids Screen POS MDM Medical Decision Making Medical Screen Exam Complete: Yes Emergency Medical Condition: Yes Differential Diagnosis Abdominal pain, tubo-ovarian abscess, ovarian torsion, , ectopic , psychosis. Narrative Course Patient room to the emergency department, she is unwilling to provide any history. When taken for her pelvic exam to our pelvic room patient finally is able to speak to me after Toradol and Benadryl. She verbally consented to having pelvic exam done. She states "I am not a doctor I told you I had abdominal pain and back pain. She states that been having back pain for months and the just started having abdominal pain today and you need to figure out what strongly." Discussed that she has a morphine allergy and she cannot tell me what her morphine allergy is therefore I am very reluctant to order narcotics for the patient because I do not know what her adverse reaction is. At this point it had ample time to review the patient's past medical history, she was here January 04 for very similar, she was admitted to the hospital at that time for bradycardia and ultimately signed out AGAINST MEDICAL ADVICE. At that time it was documented by provider that the patient had been out of her antipsychotics for a few days as well. Is still is possible the patient is having somatoform disorder. Still have ordered an ultrasound of her pelvis as well as a CAT scan of her abdomen. Patient is still reluctant to give me any history. According to consultation with cardiology last month she was diagnosed with Mobitz type I second-degree heart block. So far today her blood work is completely normal, I have added Ativan and Haldol for her, will continue to reassess. The rail technician is arrived and is performed with transabdominal views but the patient now is too sedate to consent for transvaginal views. The rail technician feels uncomfortable continuing. This is unavoidable, the patient appears somewhat uncomfortable that medication had been given unfortunately this will prolong her stay in the ER. CAT scan of the abdomen still ordered and pending and we will proceed with this. I have reexamined the patient currently, and she does arouse to physical stimuli on the shoulder, she is protecting her airway and saturating well. Re-palpation of her abdomen she does not arouse. This would suggest somatoform disorder. Patient thus far has had a completely negative workup in the emergency department, CBC CMP lipase unremarkable, UA negative, beta hCG negative. CT of abdomen shows nothing acute. Her trans-abdominal pelvic ultrasound is negative but not great visualization of the ovaries. Patient fairly somnolent after medications she was discussed with Dr. Paiz to reassess the patient after she is more coherent and disposition appropriately. Diagnosis Primary Impression: Abdominal pain Alfredo Leal MD Feb 25, 2018 18:59
[2018-02-25] MEDS ORDERED: KETOROLAC TROMETHAMINE 30 MG/ML (IVP) VIAL IV PUSH ONE (19:00)
[2018-02-25] MEDS ORDERED: SODIUM CHLORIDE 0.9% FLUSH 10 ML FLUSH IV FLUSH PRN (19:00)
[2018-02-25] MEDS ORDERED: diphenhydrAMINE HCL 50 MG/ML VIAL IV PUSH ONE (19:00)
[2018-02-25 19:15] VITALS: O2SAT 98
[2018-02-25 19:26] LABS: AUTOMATED NEUTROPHIL # 6.9 TH/MM3 (1.8-7.7); BASOPHIL % 0.3 % (0.0-2.0); EOSINOPHIL # 0.1 TH/MM3 (0-0.4); EOSINOPHIL % 0.6 % (0.0-4.0); HEMATOCRIT 39.3 % (35.0-46.0); HEMOGLOBIN 12.9 GM/DL (11.6-15.3); LYMPH % 18.7 % (9.0-44.0); LYMPHOCYTE # 1.7 TH/MM3 (1.0-4.8); MEAN CELL VOLUME 86.9 FL (80.0-100.0); MEAN CORPUSCULAR HEMOGLOBIN 28.5 PG (27.0-34.0); MEAN CORPUSCULAR HGB CONC 32.9 % (32.0-36.0); MEAN PLATELET VOLUME 8.8 FL (7.0-11.0); MONO % 3.5 % (0.0-8.0); MONOCYTE # 0.3 TH/MM3 (0-0.9); NEUT % 76.9 % (16.0-70.0); PLATELET COUNT 245 TH/MM3 (150-450); RED BLOOD COUNT 4.53 MIL/MM3 (4.00-5.30); RED CELL DISTRIBUTION WIDTH 16.6 % (11.6-17.2)
[2018-02-25] MEDS ORDERED: SODIUM CHLOR 0.9% 1000 ML INJ 1,000 ML IV ONE (19:30)
[2018-02-25 19:33] LABS: CHLORIDE 106 MEQ/L (98-107); SODIUM (NA) 138 MEQ/L (136-145)
[2018-02-25 19:37] LABS: BICARBONATE 24.2 MEQ/L (21.0-32.0); BLOOD UREA NITROGEN 9 MG/DL (7-18); GLUCOSE,RANDOM 106 MG/DL (74-106)
[2018-02-25 19:40] LABS: ALT (GPT) 13 U/L (10-53); AST (GOT) 18 U/L (15-37); CREATININE 0.86 MG/DL (0.50-1.00); GLOMERULAR FILTRATION RATE 92 ML/MIN (>89); PROTHROMBIN TIME - PATIENT 10.5 SEC (9.8-11.6)
[2018-02-25 19:41] LABS: TOTAL BILIRUBIN ADULT 0.3 MG/DL (0.2-1.0)
[2018-02-25 19:42] LABS: TOTAL PROTEIN 8.4 GM/DL (6.4-8.2)
[2018-02-25 19:43] LABS: ALKALINE PHOSPHATASE 63 U/L (45-117)
[2018-02-25] MEDS ORDERED: HALOPERIDOL LACTATE 5 MG/ML AMP IM ONE (21:00)
[2018-02-25] MEDS ORDERED: LORazepam 2 MG/ML VIAL IV PUSH ONE (21:00)
[2018-02-25 21:02] LABS: BILIRUBIN, URINE NEG (NEG); BLOOD, URINE TRACE (NEG); GLUCOSE,URINE NEG (NEG); KETONE, URINE NEG (NEG); NITRITE,URINE NEG (NEG); PH, URINE 7.5 (5.0-8.5); URINE COLOR YELLOW (YELLW/STRAW); URINE LEUKOCYTE ESTERASE NEG (NEG)
[2018-02-25 21:09] LABS: SQUAMOUS EPITHELIAL CELL URINE 0-5 /hpf (0-5)
[2018-02-25 21:10] LABS: AMORPHOUS SEDIMENT, URINE SMALL; MUCUS URINE OCC /lpf (OCC)
--- NOTE | 2018-02-25 21:35 | RADRPT ---
EXAM DATE/TIME: 02/25/2018 20:54 [facility] COMPARISON: No previous studies available for comparison. EXTERNAL COMPARISON : INDICATIONS : Pelvic pain. MEDICAL HISTORY : Hypertension. Asthma. Fibroid tumor. Ovarian cysts. SURGICAL HISTORY : Tonsillectomy. Appendectomy. Fibroid tumor removed. ENCOUNTER: Initial ACUITY: 1 day PAIN SCORE: 10/10 LOCATION: Bilateral pelvis MEASUREMENTS: UTERUS: 7.0 x 6.3 x 4.0 cm RIGHT OVARY: N/A Non visualized LEFT OVARY: N/A Non visualized FINDINGS: UTERUS: Mildly heterogeneous. Without a perceptible mass or intrauterine fluid. RIGHT OVARY: Not well visualized. No perceptible mass. LEFT OVARY: Not well visualized. No perceptible mass. MISCELLANEOUS: No free fluid. CONCLUSION: Limited study without mass or other acute abnormality demonstrated. Bernabe Mcgovern MD on February 25, 2018 at 21:32 Board Certified Radiologist. This report was verified electronically.
[2018-02-25 22:03] VITALS: BP 142/85; PULSE 52; RESP 18; O2SAT 97
[2018-02-25] MEDS ORDERED: IOHEXOL 350 MG/ML 10 ML VIAL (for RAD DIAG) IVCONTRAST ONE (22:06)
--- NOTE | 2018-02-25 22:14 | RADRPT ---
EXAM DATE/TIME: 02/25/2018 21:53 [facility] COMPARISON: US PELVIS COMP W/TRANSVAGINAL, February 25, 2018, 20:54. CT ABDOMEN & PELVIS W CONTRAST, January 04, 018, 15:07. INDICATIONS : Abdominal pain. IV CONTRAST: 100 cc Omnipaque 350 (iohexol) IV ORAL CONTRAST: No oral contrast ingested. RADIATION DOSE: 12.38 CTDIvol (mGy) MEDICAL HISTORY : Hypertension. SURGICAL HISTORY : Appendectomy. ENCOUNTER: Initial ACUITY: 1 day PAIN SCALE: Non-responsive LOCATION: Bilateral abdomen. TECHNIQUE: Volumetric scanning of the abdomen and pelvis was performed. Using automated exposure control and ad justment of the mA and/or kV according to patient size, radiation dose was kept as low as reasonably achievable to obtain optimal diagnostic quality images. DICOM format image data is available electro nically for review and comparison. FINDINGS: LOWER LUNGS: The visualized lower lungs are clear. LIVER: Homogeneous density without lesion. There is no dilation of the biliary tree. No calcified gallston es. SPLEEN: Normal size without lesion. PANCREAS: Within normal limits. KIDNEYS: Normal in size and shape. There is no mass, stone or hydronephrosis. ADRENAL GLANDS: Within normal limits. VASCULAR: There is no aortic aneurysm. BOWEL/MESENTERY: The stomach, small bowel, and colon demonstrate no acute abnormality. There is no free intraperitone al air or fluid. ABDOMINAL WALL: Within normal limits. RETROPERITONEUM: There is no lymphadenopathy. BLADDER: No wall thickening or mass. REPRODUCTIVE: No acute inflammatory changes are demonstrated. No perceptible free fluid. A partially calcified intr amural fibroid is seen measuring 4.2 cm. There is a posterior body subserosal fibroid that measures 2 cm. There is a subserosal fibroid of the left side of the fundus and measures 2.[address] appearance of the adnexal regions within normal limits. INGUINAL: There is no lymphadenopathy or hernia. MUSCULOSKELETAL: No acute bony abnormality demonstrated. CONCLUSION: No acute abnormality demonstrated in the abdomen or pelvis. Bernabe Mcgovern MD on February 25, 2018 at 22:08 Board Certified Radiologist. This report was verified electronically.
[2018-02-26 00:01] VITALS: BP 148/88; PULSE 56; RESP 15; O2SAT 100
--- NOTE | 2018-02-26 01:05 | PD ---
Physical Exam Date Seen by Provider: Feb 26, 2018 Time Seen by Provider: 01:02 Narrative Accepted transfer of care from Dr. Leal Data Data Last Documented VS Vital Signs Date Time Temp Pulse Resp B/P (MAP) Pulse Ox O2 Delivery O2 Flow Rate FiO2 02/26/18 01:13 48 16 153/80 (104) 100 Room Air 02/25/18 18:23 97.5 Orders Orders Beta Hcg (Quant/Titer) (02/25/18 18:49) Complete Blood Count With Diff (02/25/18 18:49) Comprehensive Metabolic Panel (02/25/18 18:49) Lipase (02/25/18 18:49) Lactic Acid (02/25/18 18:49) Prothrombin Time / Inr (Pt) (02/25/18 18:49) Act Partial Throm Time (Ptt) (02/25/18 18:49) Urinalysis - C+S If Indicated (02/25/18 18:49) Iv Access Insert/Monitor (02/25/18 18:51) Ecg Monitoring (02/25/18 18:51) Oximetry (02/25/18 18:51) Sodium Chloride 0.9% Flush (Ns Flush) (02/25/18 19:00) Ed Urine Pregnancytest Poc (02/25/18 18:51) Ketorolac Inj (Toradol Inj) (02/25/18 19:00) Diphenhydramine Inj (Benadryl Inj) (02/25/18 19:00) Drug Screen, Random Urine (02/25/18 19:28) Sodium Chlor 0.9% 1000 Ml Inj (Ns 1000 M (02/25/18 19:30) Wet Prep Profile (02/25/18 19:28) Gc And Chlamydia Pcr (02/25/18 19:28) Ct Abd/Pel W Iv Contrast(Rout) (02/25/18 ) Us Pelvis Comp W Transvaginal (02/25/18 ) Cath For Specimen (02/25/18 20:17) Haloperidol Inj (Haldol Inj) (02/25/18 21:00) Lorazepam Inj (Ativan Inj) (02/25/18 21:00) Iohexol 350 Inj (Omnipaque 350 Inj) (02/25/18 22:06) Ed Discharge Order (02/26/18 04:33) Labs Laboratory Tests Test 02/25/18 19:07 02/25/18 20:47 White Blood Count 9.0 TH/MM3 Red Blood Count 4.53 MIL/MM3 Hemoglobin 12.9 GM/DL Hematocrit 39.3 % Mean Corpuscular Volume 86.9 FL Mean Corpuscular Hemoglobin 28.5 PG Mean Corpuscular Hemoglobin Concent 32.9 % Red Cell Distribution Width 16.6 % Platelet Count 245 TH/MM3 Mean Platelet Volume 8.8 FL Neutrophils (%) (Auto) 76.9 % Lymphocytes (%) (Auto) 18.7 % Monocytes (%) (Auto) 3.5 % Eosinophils (%) (Auto) 0.6 % Basophils (%) (Auto) 0.3 % Neutrophils # (Auto) 6.9 TH/MM3 Lymphocytes # (Auto) 1.7 TH/MM3 Monocytes # (Auto) 0.3 TH/MM3 Eosinophils # (Auto) 0.1 TH/MM3 Basophils # (Auto) 0.0 TH/MM3 CBC Comment DIFF FINAL Differential Comment Prothrombin Time 10.5 SEC Prothromb Time International Ratio 1.0 RATIO Activated Partial Thromboplast Time 27.1 SEC Blood Urea Nitrogen 9 MG/DL Creatinine 0.86 MG/DL Random Glucose 106 MG/DL Total Protein 8.4 GM/DL Albumin 4.0 GM/DL Calcium Level 9.0 MG/DL Alkaline Phosphatase 63 U/L Aspartate Amino Transf (AST/SGOT) 18 U/L Alanine Aminotransferase (ALT/SGPT) 13 U/L Total Bilirubin 0.3 MG/DL Sodium Level 138 MEQ/L Potassium Level 3.7 MEQ/L Chloride Level 106 MEQ/L Carbon Dioxide Level 24.2 MEQ/L Anion Gap 8 MEQ/L Estimat Glomerular Filtration Rate 92 ML/MIN Lactic Acid Level 1.8 mmol/L Lipase 182 U/L Human Chorionic Gonadotropin, Quant LESS THAN 1 MIU/ML Urine Collection Type CATH Urine Color YELLOW Urine Turbidity CLEAR Urine pH 7.5 Urine Specific [place] 1.025 Urine Protein TRACE mg/dL Urine Glucose (UA) NEG mg/dL Urine Ketones NEG mg/dL Urine Occult Blood TRACE Urine Nitrite NEG Urine Bilirubin NEG Urine Urobilinogen 0.2 MG/DL Urine Leukocyte Esterase NEG Urine RBC 4-9 /hpf Urine Squamous Epithelial Cells 0-5 /hpf Urine Amorphous Sediment SMALL Urine Mucus OCC /lpf Microscopic Urinalysis Comment CATH-CULT NOT IND Clue Cells (Wet Prep) NONE SEEN Vaginal Trichomonas (Wet Prep) NONE SEEN Vaginal Yeast (Wet Prep) NONE SEEN Urine Opiates Screen NEG Urine Barbiturates Screen NEG Urine Amphetamines Screen NEG Urine Benzodiazepines Screen NEG Urine Cocaine Screen NEG Urine Cannabinoids Screen POS Chlamydia trachomatis DNA (PCR) NOT DETECTED Neisseria gonorrhoeae DNA (PCR) NOT DETECTED MDM Medical Record Reviewed: Yes Supervised Visit with VINOD: No Interpretation(s) UDS: Positive for cannabinoids Quantitative hCG: Less than 1, not elevated UA: Grossly within normal limits Wet prep: negative Lactic acid: 1.8, not elevated PCR GC/Chlamydia: Negative Last Impressions Pelvis Ultrasound 02/25/18 0000 Signed Impressions: Service Date/Time: Sunday, February 25, 2018 20:54 - CONCLUSION: Limited study without mass or other acute abnormality demonstrated. Bernabe Mcgovern MD Abdomen/Pelvis CT 02/25/18 0000 Signed Impressions: Service Date/Time: Sunday, February 25, 2018 21:53 - CONCLUSION: No acute abnormality demonstrated in the abdomen or pelvis. Bernabe Mcgovern MD CBC & BMP Diagram 02/25/18 19:07 Total Protein 8.4 H, Albumin 4.0, Calcium Level 9.0, Alkaline Phosphatase 63, Aspartate Amino Transf (AST/SGOT) 18, Alanine Aminotransferase (ALT/SGPT) 13, Total Bilirubin 0.3 Vital Signs Date Time Temp Pulse Resp B/P (MAP) Pulse Ox O2 Delivery O2 Flow Rate FiO2 02/26/18 00:01 56 15 148/88 (108) 100 Room Air 02/25/18 22:03 52 18 142/85 (104) 97 Room Air 02/25/18 19:15 98 Room Air 02/25/18 18:23 97.5 50 18 143/93 (110) 100 Differential Diagnosis Accepted transfer of care from Dr. Leal; please refer to his dictation Narrative Course Accepted transfer of care from Dr. Leal; follow up CT results --patient sleeping off iatrogenic sedation Patient sleeping resting comfortably vital signs stable Patient sleeping resting comfortably vital signs stable It is now 4:35 AM patient is amatory to the bathroom without assistance and aware of lab results imaging results and stable for outpatient management. Patient is encouraged to follow-up with her local physician/APPRENTICE MACHINIST OUTSIDE for ongoing evaluation and management of recurrent abdominal pain of unclear etiology. Diagnosis Primary Impression: Abdominal pain Qualified Codes: R10.9 - Unspecified abdominal pain Referrals: Primary Care Physician call for appointment Patient Instructions: General Instructions Additional Instruction: Follow-up with primary care provider Return to the emergency department for any concerns Take as tolerated acetaminophen and/or ibuprofen Med/Other Pt SpecificInfo: No Meds Exist/No RX given Disposition: 01 DISCHARGE HOME Condition: Stable Mary Paiz MD Feb 26, 2018 01:05
[2018-02-26 01:13] VITALS: BP 153/80; PULSE 48; RESP 16; O2SAT 100
[2018-02-26 03:00] VITALS: BP 150/86; PULSE 53; RESP 16; O2SAT 100
[2018-02-26 09:17] VITALS: BP 122/75
== END 2018-02-26 09:20 | disposition home or self-care (01) ==
LOC: PHED 18:15
DX: R10.9 Unspecified abdominal pain (principal); F12.10 Cannabis abuse, uncomplicated; D64.9 Anemia, unspecified; J45.909 Unspecified asthma, uncomplicated; F41.9 Anxiety disorder, unspecified; I10 Essential (primary) hypertension; Z72.0 Tobacco use; Z79.899 Other long term (current) drug therapy; Z88.5 Allergy status to narcotic agent
CPT/HCPCS: 74177; 76830; 76856; 80053; 80307; 81001; 83605; 83690; 84702; 84703; 85025; 85610; 85730; 87210; 87491; 87591; 96361; 96372; 96374; 96375; 99284; J1200; J1630; J1885; J2060; J7030; P9612; Q9967

== ENCOUNTER 2018-03-31 12:59 | Emergency (ER) | payer SELFPAY ==
[~2018-03-31] VITALS: Ht 165.1 cm; Wt 75.0 kg
[2018-03-31 13:03] VITALS: BP 167/81; PULSE 50; RESP 16; TEMP 97.3; O2SAT 100
--- NOTE | 2018-03-31 13:29 | PD ---
HPI . Abdominal pain Chief Complaint: Abdominal Pain Time Seen by Provider: 13:23 Travel History International Travel<30 days: No Contact w/Intl Traveler<30days: No Traveled to known affect area: No History of Present Illness HPI History is obtained entirely from the nurse's notes because the patient is asleep and does not respond to my verbal request to talk to me. Her nurse tells me that she had the same problem. The patient presented to triage complaining with abdominal pain which started this morning. She described the pain as 10/10 and stated that it was associated with nausea. No further history is currently available. The patient subsequently woke up and presented to the nurses station complaining with severe abdominal pain. When I went back to check on her, there were cookie crumbs in her bed. PFSH Past Medical History Anemia: Yes Asthma: Yes Autoimmune Disease: No Blood Disorders: No Anxiety: Yes Cancer: No Cardiovascular Problems: No Chemotherapy: No Diabetes: No Diminished Hearing: No Endocrine: No Gastrointestinal Disorders: No Genitourinary: No Hypertension: Yes Musculoskeletal: Yes ( CHRONIC BACK PAIN) Neurologic: No Psychiatric: No Reproductive: No Respiratory: Yes (BRONCHITIS) Immunizations Current: Yes Radiation Therapy: No PNEUMOCCOCAL Vaccine (Year): 3 ?: Not Menopausal: No : 1 Miscarriage: 1 Ovarian Cysts: Yes Past Surgical History Abdominal Surgery: Yes AICD: No Appendectomy: Yes Genitourinary Surgery: No Gynecologic Surgery: Yes (FIBROID TUMOR) Pacemaker: No Thoracic Surgery: No Tonsillectomy: Yes Other Surgery: Yes Social History Alcohol Use: Yes Tobacco Use: Yes Substance Use: Yes (Marijuana ) Allergies-Medications (Allergen,Severity, Reaction): Coded Allergies: codeine (Unverified Allergy, Severe, ANAPHALAXIS, 02/25/18) doxycycline (Unverified Allergy, Severe, Anaphylaxis, 02/25/18) morphine (Verified Adverse Reaction, Mild, Hallucinations, 02/25/18) Reported Meds & Prescriptions Reported Meds & Active Scripts Active Tramadol (Tramadol HCl) 50 Mg Tab 50 Mg PO Q6H PRN Zofran Odt (Ondansetron Odt) 4 Mg Tab 4 Mg SL Q6HR PRN Fioricet (Oziwosvqfa-Ggmvxglqjcjcj-Ukuvfkow) 50-300-40 Mg Cap 1 Cap PO Q4H PRN Reported Xanax (Alprazolam) 2 Mg Tab 2 Mg PO Q8H PRN Hydrocodon-Acetamin 7.5-325/15 (Hydrocodone/Acetaminophen) 7.5 Mg-325 Mg/15 Ml ( 15 Ml) Solution 7.5 Q6HR Physical Exam Narrative GENERAL: The patient was initially asleep the first couple of times and I went into see her. She is now ambulatory about the department complaining with abdominal pain. She is eating cookies. SKIN: Warm and dry. HEAD: Normocephalic/atraumatic. EYES: Pupils are equal. Extraocular movements are intact. NECK: Normal range of motion. CARDIOVASCULAR: Regular rate and rhythm. RESPIRATORY: Nonlabored respirations. ABDOMEN: Abdomen is soft with diffuse suprapubic tenderness. MUSCULOSKELETAL: Atraumatic. NEUROLOGICAL: Nonfocal. PSYCHIATRIC: Appropriate mood and affect. Data Data Last Documented VS Vital Signs Date Time Temp Pulse Resp B/P (MAP) Pulse Ox O2 Delivery O2 Flow Rate FiO2 03/31/18 13:18 18 03/31/18 13:03 97.3 50 167/81 (109) 100 Orders Orders Basic Metabolic Panel (Bmp) (03/31/18 13:35) Complete Blood Count With Diff (03/31/18 13:35) Ed Urine Pregnancytest Poc (03/31/18 13:35) Urinalysis - C+S If Indicated (03/31/18 15:52) Labs Laboratory Tests Test 03/31/18 13:45 03/31/18 15:32 03/31/18 16:06 White Blood Count 6.5 TH/MM3 Red Blood Count 4.22 MIL/MM3 Hemoglobin 12.7 GM/DL Hematocrit 36.8 % Mean Corpuscular Volume 87.3 FL Mean Corpuscular Hemoglobin 30.0 PG Mean Corpuscular Hemoglobin Concent 34.4 % Red Cell Distribution Width 15.6 % Platelet Count 255 TH/MM3 Mean Platelet Volume 9.3 FL Neutrophils (%) (Auto) 79.9 % Lymphocytes (%) (Auto) 17.0 % Monocytes (%) (Auto) 2.4 % Eosinophils (%) (Auto) 0.1 % Basophils (%) (Auto) 0.6 % Neutrophils # (Auto) 5.2 TH/MM3 Lymphocytes # (Auto) 1.1 TH/MM3 Monocytes # (Auto) 0.2 TH/MM3 Eosinophils # (Auto) 0.0 TH/MM3 Basophils # (Auto) 0.0 TH/MM3 CBC Comment DIFF FINAL Differential Comment Blood Urea Nitrogen 10 MG/DL Creatinine 0.78 MG/DL Random Glucose 96 MG/DL Calcium Level 8.6 MG/DL Sodium Level 140 MEQ/L Potassium Level 3.5 MEQ/L Chloride Level 105 MEQ/L Carbon Dioxide Level 23.3 MEQ/L Anion Gap 12 MEQ/L Estimat Glomerular Filtration Rate 103 ML/MIN Urine Color YELLOW Urine Turbidity HAZY Urine pH 7.5 Urine Specific Grant 1.026 Urine Protein 30 mg/dL Urine Glucose (UA) NEG mg/dL Urine Ketones TRACE mg/dL Urine Occult Blood TRACE Urine Nitrite NEG Urine Bilirubin NEG Urine Urobilinogen 2.0 MG/DL Urine Leukocyte Esterase NEG Urine RBC 10 /hpf Urine WBC 1 /hpf Urine Squamous Epithelial Cells 4 /hpf Urine Amorphous Sediment RARE Urine Mucus MANY /lpf Microscopic Urinalysis Comment CULT NOT INDICATED MDM Medical Decision Making Medical Screen Exam Complete: Yes Emergency Medical Condition: Yes Medical Record Reviewed: Yes (The patient has had similar behavioral disturbances when she has been here before. She was most recently seen on for abdominal pain. She was very uncooperative at that time as well. She had a completely normal workup including a transvaginal ultrasound and a CT of her abdomen and pelvis.) Differential Diagnosis Differential diagnosis of abdominal pain includes but is not limited to gastritis, pancreatitis, hepatitis, gastroenteritis, constipation, urinary retention, peptic ulcer disease, diverticulitis or appendicitis Narrative Course This patient presents with abdominal pain which she rates 10/10. However, when I went into see her less than 30 minutes after her registration, she was sound asleep. She had a normal abdominal evaluation on 02/25/18. She does reportedly have psychiatric problems. I will check some baseline labs. CBC Diagram 03/31/18 13:45 BMP Diagram 03/31/18 15:32 Calcium Level 8.6 UA is contaminated. test is negative. I will give the patient a shot of Bentyl and discharge her to home. Diagnosis Primary Impression: Abdominal pain Qualified Codes: R10.30 - Lower abdominal pain, unspecified Disposition: DISCHARGE HOME Condition: Stable Debra Randolph MD March 31, 2018 13:29
[2018-03-31 14:24] LABS: AUTOMATED NEUTROPHIL # 5.2 TH/MM3 (1.8-7.7); BASOPHIL % 0.6 % (0.0-2.0); EOSINOPHIL % 0.1 % (0.0-4.0); HEMATOCRIT 36.8 % (35.0-46.0); HEMOGLOBIN 12.7 GM/DL (11.6-15.3); LYMPHOCYTE # 1.1 TH/MM3 (1.0-4.8); MEAN CELL VOLUME 87.3 FL (80.0-100.0); MEAN CORPUSCULAR HGB CONC 34.4 % (32.0-36.0); MEAN PLATELET VOLUME 9.3 FL (7.0-11.0); MONO % 2.4 % (0.0-8.0); MONOCYTE # 0.2 TH/MM3 (0-0.9); NEUT % 79.9 % (16.0-70.0); PLATELET COUNT 255 TH/MM3 (150-450); RED BLOOD COUNT 4.22 MIL/MM3 (4.00-5.30); RED CELL DISTRIBUTION WIDTH 15.6 % (11.6-17.2); WHITE BLOOD COUNT 6.5 TH/MM3 (4.0-11.0)
[2018-03-31 16:37] LABS: BICARBONATE 23.3 MEQ/L (21.0-32.0); CALCIUM 8.6 MG/DL (8.5-10.1); CREATININE 0.78 MG/DL (0.50-1.00)
[2018-03-31 16:52] LABS: AMORPHOUS SEDIMENT, URINE RARE; BILIRUBIN, URINE NEG (NEG); BLOOD, URINE TRACE (NEG); GLUCOSE,URINE NEG (NEG); KETONE, URINE TRACE mg/dL (NEG); MUCUS URINE MANY /lpf (OCC); NITRITE,URINE NEG (NEG); PH, URINE 7.5 (5.0-8.5); SQUAMOUS EPITHELIAL CELL URINE 4 /hpf (0-5); URINE COLOR YELLOW (YELLW/STRAW); URINE LEUKOCYTE ESTERASE NEG (NEG)
[2018-03-31] MEDS ORDERED: DICYCLOMINE HCL 20 MG/2 ML VIAL IM ONE (17:00)
== END 2018-03-31 17:19 | disposition home or self-care (01) ==
LOC: NEPC 12:59
DX: R10.30 Lower abdominal pain, unspecified (principal); I10 Essential (primary) hypertension; D64.9 Anemia, unspecified; F12.90 Cannabis use, unspecified, uncomplicated; Z72.0 Tobacco use
CPT/HCPCS: 80048; 81001; 84703; 85025; 96372; 99283; J0500